=== PATIENT | female | born 1935 | race Caucasian/White ===

== ENCOUNTER 2021-10-24 13:21 | Outpatient (RCR) | payer SELFPAY | END 2022-05-25 10:25 | disposition home or self-care (01) | LOC: MOW 13:21 | PROVIDERS: PCP Family Medicine; Visit Provider Family Medicine | DX: Z76.0 Encounter for issue of repeat prescription (principal) | CPT/HCPCS: S5170 ==

== ENCOUNTER 2021-11-13 10:43 | Emergency (ER) | payer MEDICARE, BC, SELFPAY ==
[2021-11-13 10:51] VITALS: BP 179/78; PULSE 61; RESP 16; TEMP 36.4; O2SAT 97; BMI 36.1
--- NOTE | 2021-11-13 11:40 | ED.GENADULT ---
HPI - General Adult General Chief complaint: Dizziness/Vertigo Stated complaint: Dizziness Time Seen by Provider: 11/13/21 11:07 History of Present Illness HPI narrative: 86-year-old female coming in today complaining of an episode of weakness. She states that she has been feeling fine and got up this morning also feeling fine. She had her breakfast and got ready to go out with her friend. When she went to the door she all of a sudden felt very weak and had to sit on the bench by her front door. She knew that her friend be the urine minutes so she got herself up walked out the door and then sat on the bench outside. When her friend arrived her friend helped her get to the car and they came straight here. Patient states that she feels better now. She is not sure if she is still weak or not if she has not tried to walk. She denies feeling dizzy. She denies feeling lightheaded. She denies the room spinning. She denies nausea or vomiting. No chest pain, shortness of breath or abdominal discomfort. She denies any recent illnesses. She denies any fevers or chills. No recent diarrhea or urinary symptoms such as frequency, urgency or dysuria. She does not have a headache. She denies any blurry vision, double vision or changes in her hearing. She denies any slurred speech or focal neurologic deficit. She denies 1 leg or arm not working when compared to the others. Related Data Previous Rx's Medication Instructions Recorded cephalexin 500 mg tablet 500 mg PO TID 5 Days #15 tab 11/13/21 Allergies Allergy/AdvReac Type Severity Reaction Status Date / Time nitrofurantoin Allergy Unknown Verified 11/13/21 13:40 diphenhydramine AdvReac Unknown Verified 11/13/21 13:39 melatonin AdvReac Unknown Verified 11/13/21 13:40 lactose intolerance AdvReac Unknown Uncoded 11/13/21 13:39 Review of Systems Status of ROS: Reports: 10 or more systems reviewed and unremarkable except as noted in History and below PFSH PFS Social History Smoking Status: Never smoker How often do you have a drink containing alcohol: never AUDIT-C Alcohol total score: 0 Non-prescribed substance use: denies use Exam Narrative: Exam Narrative: Well-nourished well-developed patient in no acute distress. Alert and oriented. Answers questions appropriately. Mood and affect are appropriate. Thoughts are goal oriented and rational. No tangential or magical thinking noted. Patient speaks in full sentences without needing to catch their breath. Speech is not slurred or pressured. HEENT: Normocephalic atraumatic. Pupils are equally round reactive to light. Extraocular muscles are intact. Conjunctivae are moist without any icterus noted. Moist mucous membranes. Posterior pharynx is normal. Neck is soft without any lymphadenopathy or thyromegaly. No masses are appreciated. Face is symmetric. There is no facial droop noted. Cardiovascular: Heart is regular rate and rhythm S1 and S2 are present without any murmurs. Lungs: Clear to auscultation bilaterally no wheezes rhonchi or rales are appreciated. Patient takes deep breaths without any discomfort. Abdomen: Soft and nontender nondistended with normal bowel sounds. No guarding or rebound. No masses or organomegaly appreciated. Extremities: Bilateral lower extremities are without edema. Normal DP and PT pulses. Skin: Well perfused without any obvious rashes. Strength is 5/5 of the upper and lower extremities. Reflexes are 2+ and symmetric at the knees. Cranial nerves 3-12 are normal. [id number] is normal. There is no nystagmus either horizontally or vertically. Patient is able to sit up in bed without difficulty. Patient was able to get out of bed and ambulate to the bathroom unassisted. However after she was the bathroom she said that she felt like she was going to fall over she requested help getting back to the room. Later on she was able to ambulate again unassisted back to the bathroom and back to the bed. Const: Vital Signs, click to edit/add: Vital Signs - 24 hr 11/13/21 10:51 11/13/21 12:28 11/13/21 13:03 Temperature 97.5 F L Pulse Rate [Pulse Oximeter] 61 62 Pulse Rate [orthos tatic lying] 64 Pulse Rate [orthos tatic sitting] 62 Pulse Rate [orthos tatic standing] 62 Respiratory Rate 16 14 Blood Pressure [Le ft Forearm] 179/78 H 194/93 H Blood Pressure [or thostatic lying] 193/87 H Blood Pressure [or thostatic sitting] 195/82 H Blood Pressure [or thostatic standing ] 181/109 H Pulse Oximetry 97 96 11/13/21 14:30 11/13/21 15:34 11/13/21 15:35 Temperature 97.5 F L Pulse Rate [Pulse Oximeter] 89 84 Pulse Rate [orthos tatic lying] Pulse Rate [orthos tatic sitting] Pulse Rate [orthos tatic standing] Respiratory Rate 12 12 14 Blood Pressure [Le ft Forearm] 188/89 H 165/100 H Blood Pressure [or thostatic lying] Blood Pressure [or thostatic sitting] Blood Pressure [or thostatic standing ] Pulse Oximetry 97 98 Course Course Hospital Course: Labs appear unremarkable however urinalysis does shows signs of infection. We were able to do a head CT which was unremarkable and given the patient's loss of balance that has now occurred twice once at home and once in the ED I did recommend a CTA study to rule out stroke. She is not able to get an MRI here if she does have a pacemaker. We attempted multiple times to get an IV in and unfortunately were unsuccessful even with the help from the anesthesia team. I discussed patient's options with her at this point which would include transfer to another facility in order to have 1 of these test done in order to assess whether not her symptoms are stroke related. Patient states that she is not interested in doing this test and she was requesting to go home. I did speak to the patient's daughter, Daniela, who stated that the patient often has episodes like this. For example she states that they went to the store the other day and patient had to put her head down on the checkout counter because she was very dizzy and felt like she could not stand anymore. Read back also states that the patient hyperventilates frequently which causes her to feel like she is going to pass out. Daniela states that the patient often complains to her that she is feeling weak. Vital Signs Vital signs: Initial Vital Signs Temperature 97.5 F L 11/13/21 10:51 Temperature Source Temporal Artery Scan 11/13/21 10:51 Pulse Rate 61 11/13/21 10:51 Pulse Rhythm 11/13/21 10:51 Respiratory Rate 16 11/13/21 10:51 Blood Pressure 179/78 H 11/13/21 10:51 Blood Pressure Mean 111 11/13/21 10:51 Pulse Oximetry 97 11/13/21 10:51 Oxygen Delivery Method 11/13/21 10:51 Vital Signs Temperature 97.5 F L 11/13/21 10:51 Pulse Rate 61 11/13/21 10:51 Respiratory Rate 16 11/13/21 10:51 Blood Pressure 179/78 H 11/13/21 10:51 Pulse Oximetry 97 11/13/21 10:51 Temperature 97.5 F L 11/13/21 15:34 Pulse Rate 84 11/13/21 15:35 Respiratory Rate 14 11/13/21 15:35 Blood Pressure 165/100 H 11/13/21 15:35 Pulse Oximetry 98 11/13/21 15:35 Medical Decision Making MDM Narrative Medical decision making narrative: 86-year-old female with an episode of feeling like she lost her balance and weakness. We discussed the possibility of a stroke causing her symptoms. We discussed the possibility of feeling hot overheated or dehydrated. We discussed old age and positional changes causing her symptoms. We discussed putting her on a daily aspirin which the patient states that she cannot take. She is currently on daily Xarelto. Again I expressed my concern about not being able to do further testing and patient said that she understands this but is hungry and would rather go home at this point. I requested that she follow up with her primary care provider this coming week to see how she is feeling. In the meantime there certainly is a possibility of a UTI given her abnormal UA results therefore will put her on Keflex 3 times a day for 5 days. Lab Data Labs: Lab Results 11/13/21 11/13/21 11/13/21 Range/Units 11:16 11:58 11:58 WBC 6.69 (4.50-11.00) K/uL RBC 4.42 (4.00-5.20) m/uL Hgb 14.1 (12.0-16.0) gm/dL Hct 42.7 (33.0-51.0) % MCV 97 (80-100) fL MCH 32 (26-34) pg MCHC 33 (32-36) gm/dL RDW Coeff of Jose Maria 12.5 (11.5-15.5) % Plt Count 264 (140-440) K/uL Neut % (Auto) 63.6 (42.0-72.0) % Lymph % (Auto) 24.2 (20-44) % [place] % (Auto) 9.0 (0.0-11.0) % Eos % (Auto) 2.2 (0.0-7.0) % Baso % (Auto) 0.9 (0.0-3.0) % Neut # (Auto) 4.25 (1.7-7.0) K/uL Lymph # (Auto) 1.62 (0.90-2.90) K/uL [place] # (Auto) 0.60 (0.00-0.90) K/UL Eos # (Auto) 0.15 (0.00-0.50) K/uL Baso # (Auto) 0.06 (0.00-0.30) K/uL Abs Immat Gran (auto) 0.01 (0.00-0.30) K/uL Sodium 139 (135-149) mmol/L Potassium 3.8 (3.6-5.1) mmol/L Chloride 106 (96-114) mmol/L Carbon Dioxide 24 (20-32) mmol/L BUN 23 (7-30) mg/dL Creatinine 0.6 (0.5-1.5) mg/dL Estimated Creat Clear 33.41 Estimated GFR 87 ml/min Glucose 99 (60-115) mg/dL Lactate (0.5-1.9) mmol/L Calcium 9.4 (8.4-10.6) mg/dL Total Bilirubin 0.8 (0.1-1.5) mg/dL Direct Bilirubin 0.3 (0.0-0.5) mg/dL AST 26 (12-35) U/L ALT 18 (4-35) U/L Alkaline Phosphatase 70 (40-150) U/L Total Protein 5.9 L (6.0-8.3) g/dL Albumin 3.7 (3.3-5.0) g/dL Urine Color Yellow (Yellow) Urine Appearance Cloudy A (Clear) Urine pH 7.0 (5.0-8.5) Ur Specific [place] 1.020 (1.000-1.030) Urine Protein Negative (Negative) Urine Glucose (UA) Negative (Negative) Urine Ketones Negative (Negative) Urine Blood 1+ A (Negative) Urine Nitrite Positive A (Negative) Urine Bilirubin Negative (Negative) Urine Urobilinogen 0.2 (0.2-1.0) Ur Leukocyte Esterase Trace A (Negative) Urine RBC 0-2 (0-2) Urine WBC 2-5 (0-5) Ur Squamous Epith Cells Few (None-Few) Amorphous Sediment (None) Urine Bacteria Many A (None) Urine Mucus (None) POC Troponin I (0.01-0.04) ng/ml 11/13/21 11/13/21 Range/Units 11:58 11:58 WBC (4.50-11.00) K/uL RBC (4.00-5.20) m/uL Hgb (12.0-16.0) gm/dL Hct (33.0-51.0) % MCV (80-100) fL MCH (26-34) pg MCHC (32-36) gm/dL RDW Coeff of Jose Maria (11.5-15.5) % Plt Count (140-440) K/uL Neut % (Auto) (42.0-72.0) % Lymph % (Auto) (20-44) % [place] % (Auto) (0.0-11.0) % Eos % (Auto) (0.0-7.0) % Baso % (Auto) (0.0-3.0) % Neut # (Auto) (1.7-7.0) K/uL Lymph # (Auto) (0.90-2.90) K/uL [place] # (Auto) (0.00-0.90) K/UL Eos # (Auto) (0.00-0.50) K/uL Baso # (Auto) (0.00-0.30) K/uL Abs Immat Gran (auto) (0.00-0.30) K/uL Sodium (135-149) mmol/L Potassium (3.6-5.1) mmol/L Chloride (96-114) mmol/L Carbon Dioxide (20-32) mmol/L BUN (7-30) mg/dL Creatinine (0.5-1.5) mg/dL Estimated Creat Clear Estimated GFR ml/min Glucose (60-115) mg/dL Lactate 1.5 (0.5-1.9) mmol/L Calcium (8.4-10.6) mg/dL Total Bilirubin (0.1-1.5) mg/dL Direct Bilirubin (0.0-0.5) mg/dL AST (12-35) U/L ALT (4-35) U/L Alkaline Phosphatase (40-150) U/L Total Protein (6.0-8.3) g/dL Albumin (3.3-5.0) g/dL Urine Color (Yellow) Urine Appearance (Clear) Urine pH (5.0-8.5) Ur Specific [place] (1.000-1.030) Urine Protein (Negative) Urine Glucose (UA) (Negative) Urine Ketones (Negative) Urine Blood (Negative) Urine Nitrite (Negative) Urine Bilirubin (Negative) Urine Urobilinogen (0.2-1.0) Ur Leukocyte Esterase (Negative) Urine RBC (0-2) Urine WBC (0-5) Ur Squamous Epith Cells (None-Few) Amorphous Sediment (None) Urine Bacteria (None) Urine Mucus (None) POC Troponin I 0.00 L (0.01-0.04) ng/ml Imaging Data CT scan - head: Attestation: I have reviewed the pertinent imaging results. Radiologist's impression: FINDINGS: CSF spaces: Within normal limits for age. Brain parenchyma: The patterson-white differentiation is normal. No sign of mass, hemorrhage, or midline shift. Periventricular white matter changes consistent chronic microvascular disease. Skull base and calvarium: The visualized paranasal sinuses and mastoid air cells demonstrate no acute or significant findings. The visualized orbits are grossly unremarkable. No skull fractures. IMPRESSION: No acute intracranial abnormalities. Periventricular white matter changes consistent chronic microvascular disease ECG Data Attestation: I personally reviewed and interpreted this ECG as follows: (Atrial paced rhythm with prolonged AV conduction) Discharge Plan Discharge Clinical Impression: Weakness, UTI (urinary tract infection) Patient Disposition: Home, Self-Care Condition: Improved Additional Instructions: Follow-up with your primary care doctor if you are not feeling better this coming week. Make sure to eat nutritious meals and stay well hydrated. Get plenty of rest. Stay out of the heat. Discuss with your doctor regarding starting a daily aspirin. Prescriptions: New cephalexin 500 mg tablet 500 mg PO TID 5 Days Qty: 15 0RF Follow Up/Referrals: Leila Gonzalez DO [Primary Care Provider] - Stand Alone Forms: [facility] Info Instructions
[2021-11-13 12:08] LABS: Lactate* 1.5 mmol/L (0.5-1.9)
[2021-11-13 12:09] LABS: Potassium* 3.8 mmol/L (3.6-5.1); Sodium* 139 mmol/L (135-149)
[2021-11-13 12:10] LABS: Carbon Dioxide* 24 mmol/L (20-32); Chloride* 106 mmol/L (96-114); Glucose* 99 mg/dL (60-115)
[2021-11-13 12:22] LABS: Basophils Absolute Auto 0.06 K/uL (0.00-0.30); Basophils Percent Auto 0.9 % (0.0-3.0); Eosinophils Absolute Auto 0.15 K/uL (0.00-0.50); Eosinophils Percent Auto 2.2 % (0.0-7.0); Hematocrit 42.7 % (33.0-51.0); Hemoglobin* 14.1 gm/dL (12.0-16.0); Immature Granulocytes Abs Auto 0.01 K/uL (0.00-0.30); Lymphocytes Absolute Auto 1.62 K/uL (0.90-2.90); Lymphocytes Percent Auto 24.2 % (20-44); Mean Corpuscular HGB Conc 33 gm/dL (32-36); Mean Corpuscular Hemoglobin 32 pg (26-34); Mean Corpuscular Volume 97 fL (80-100); Neutrophils Absolute Auto 4.25 K/uL (1.7-7.0); Neutrophils Percent Auto 63.6 % (42.0-72.0); Platelet Count* 264 K/uL (140-440); RDW Coefficient of Variation % 12.5 % (11.5-15.5); Red Blood Count 4.42 m/uL (4.00-5.20); White Blood Count* 6.69 K/uL (4.50-11.00)
[2021-11-13 12:28] VITALS: BP 181/109; BP 193/87; BP 195/82; PULSE 62; PULSE 64
--- NOTE | 2021-11-13 12:45 | CRLHL7_ITS ---
For Patients: As a result of the Century Cures Act, medical imaging exams and procedure reports are released immediately into your electronic medical record. You may view this report before your referring provider. If you have questions, please contact your health care provider. INDICATION: Ataxia TECHNIQUE: CT head without contrast. COMPARISON: None FINDINGS: CSF spaces: Within normal limits for age. Brain parenchyma: The patterson-white differentiation is normal. No sign of mass, hemorrhage, or midline shift. Periventricular white matter changes consistent chronic microvascular disease. Skull base and calvarium: The visualized paranasal sinuses and mastoid air cells demonstrate no acute or significant findings. The visualized orbits are grossly unremarkable. No skull fractures. IMPRESSION: No acute intracranial abnormalities. Periventricular white matter changes consistent chronic microvascular disease Dictated by Haile Knowles MD @ 11/13/2021 2:14:12 PM Please note that all CT scans at this facility use dose modulation, iterative reconstruction, and/or weight-based dosing when appropriate to reduce radiation dose to as low as reasonably achievable. Dictated by: Haile Knowles MD @ 11/13/2021 14:14:18 (Electronically Signed)
[2021-11-13 12:47] LABS: Slide Review Reflex No
[2021-11-13 13:03] VITALS: BP 194/93; PULSE 62; RESP 14; O2SAT 96
[2021-11-13 13:15] LABS: Albumin* 3.7 g/dL (3.3-5.0)
[2021-11-13 13:18] LABS: Aspartate Amino Transferase* 26 U/L (12-35); Bilirubin Direct* 0.3 mg/dL (0.0-0.5); Bilirubin Total* 0.8 mg/dL (0.1-1.5); Blood Urea Nitrogen* 23 mg/dL (7-30); Creatinine* 0.6 mg/dL (0.5-1.5); Est. Creatinine Clearance* 33.41; Estimated Glomerular Filt Rate 87 ml/min; Total Protein* 5.9 g/dL (6.0-8.3)
[2021-11-13 13:19] LABS: Alanine Aminotransferase* 18 U/L (4-35); Alkaline Phosphatase* 70 U/L (40-150); Calcium* 9.4 mg/dL (8.4-10.6)
[2021-11-13 13:23] LABS: Appearance Urine Cloudy (Clear); Bilirubin Urine Negative (Negative); Blood Urine 1+ (Negative); Color Urine Yellow (Yellow); Glucose Urine Negative (Negative); Ketones Urine Negative (Negative); Leukocyte Esterase Urine Trace (Negative); Nitrite Urine Positive (Negative); Protein Urine Negative (Negative); RBC Urine 0-2 (0-2); Urobilinogen Urine 0.2 (0.2-1.0)
[2021-11-13 13:24] LABS: Bacteria Urine Many; Squamous Epithelial Cell Urine Few (None-Few)
--- NOTE | 2021-11-13 14:15 | ED.NURSE ---
Anesthesia in room for IV start for CTA.
[2021-11-13 14:30] VITALS: BP 188/89; PULSE 89; RESP 12; O2SAT 97
[2021-11-13 15:34] VITALS: RESP 12; TEMP 36.4
[2021-11-13 15:35] VITALS: BP 165/100; PULSE 84; RESP 14; O2SAT 98
--- NOTE | 2021-11-13 17:49 | ED.NURSE ---
Per MD, Pt to start Keflex 500mg PO TID x5days for UTI tx. Pt notified and would like it called in to [facility]. Rx called in to pharmacy staff.
== END 2021-11-13 15:47 | disposition home or self-care (01) ==
PROVIDERS: Emergency Provider Family Medicine; PCP Family Medicine
DX: R53.1 Weakness (principal); N39.0 Urinary tract infection, site not specified
CPT/HCPCS: 36415; 70450; 80048; 80076; 81001; 82565; 83605; 84484; 85025; 87086; 87186; 93005; 99285

== ENCOUNTER 2022-03-13 17:32 | Inpatient (IN) | payer MEDICARE, BC, SELFPAY ==
[2022-03-13] VITALS (7 sets, daily range): BP systolic 153–212; BP diastolic 70–128; PULSE 62–70; RESP 15–36; TEMP 37.3; O2SAT 91–97; BMI 36.1
[2022-03-13] MEDS: IPRAT-ALBUT 0.5-2.5 MG/3 ML NEB 1 NEB IH (17:47)
--- NOTE | 2022-03-13 18:00 | ED.SOB ---
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 Pt tested negative at home for COVID 19. Pt symptoms have progressed and pt was seen at the [facility] earlier today. Pt sent over as she appears to be developing respiratory distress. No chest pain noted. Pt saturation above 90% upon arrival on room air. Cough is largely nonproductive. Pt states that prior to her current illness she has been feeling overall fairly well. Pt has been afebrile. Related Data Home Medications Medication Instructions Recorded Confirmed buspirone 10 mg tablet 10 mg PO TID 03/13/22 03/13/22 donepezil 10 mg tablet 10 mg PO DAILY 03/13/22 03/13/22 flecainide 150 mg tablet 150 mg PO Q12H 03/13/22 03/13/22 furosemide 20 mg tablet 20 mg PO DAILY 03/13/22 03/13/22 lorazepam 0.5 mg tablet 0.5 mg PO DAILY PRN 03/13/22 03/13/22 rivaroxaban 20 mg tablet (Xarelto) 20 mg PO Q24H 03/13/22 03/13/22 Previous Rx's Medication Instructions Recorded cephalexin 500 mg tablet 500 mg PO TID 5 days #15 tabs 11/13/21 Allergies Allergy/AdvReac Type Severity Reaction Status Date / Time lactose Allergy Intermediate GI upset Verified 03/13/22 18:09 nitrofurantoin Allergy Unknown Verified 03/13/22 18:09 diphenhydramine AdvReac Unknown Verified 03/13/22 18:09 melatonin AdvReac Unknown Verified 03/13/22 18:09 [facility] Medical History (Updated 03/13/22 @ 21:31 by Amando Bermudez MD) Anxiety Atrial fibrillation CHF (congestive heart failure) Cognitive impairment Diverticulosis GERD (gastroesophageal reflux disease) Hypertension Pacemaker Sick sinus syndrome Surgical History (Updated 03/13/22 @ 18:20 by Amando Bermudez MD) H/O bilateral oophorectomy History of appendectomy Social History Smoking Status: Never smoker How often do you have a drink containing alcohol: never AUDIT-C Alcohol total score: 0 Non-prescribed substance use: denies use Exam Narrative: Exam Narrative: EXAM GENERAL: Patient appears frail and tachypneic EYES: No scleral icterus. THYROID: no thyroid nodules or thyromegaly. LYMPH: No supraclavicular or cervical lymphadenopathy. SKIN: Visible skin seen during exam normal or with benign process only. EXT: No dependent lower extremity pedal edema. HEART: Regular rate with distant heart tones. LUNGS: Expiratory wheezes with rhonchi bilaterally ABD: Soft, non tender, non distended. PSYCH: Good eye contact, speech is not pressured. Const: Vital Signs, click to edit/add: Vital Signs - 24 hr 03/13/22 17:36 Temperature 99.2 F Pulse Rate [Right Pulse Oximeter] 70 Respiratory Rate 36 H Blood Pressure [Ri ght Upper Arm] 204/84 H Pulse Oximetry 93 Oxygen Delivery Me thod Room Air Course Course Hospital Course: Pt seen and examined. Reevaluation(s) Reevaluation #1: RSV positive. Rest of workup shows an elevated BNP. CT of chest shows previous pnemonectomy with residual. Pt treated wtih duoneb and sats still borderline and pt working hard to breath. Will admit for IV steroids and pulmonary care. Vital Signs Vital signs: Initial Vital Signs Temperature 99.2 F 03/13/22 17:36 Temperature Source Temporal Artery Scan 03/13/22 17:36 Pulse Rate 70 03/13/22 17:36 Respiratory Rate 36 H 03/13/22 17:36 Blood Pressure 204/84 H 03/13/22 17:36 Blood Pressure Mean 124 03/13/22 17:36 Blood Pressure Position Sitting 03/13/22 17:36 Pulse Oximetry 93 03/13/22 17:36 Oxygen Delivery Method 03/13/22 17:36 Vital Signs Temperature 99.2 F 03/13/22 17:36 Pulse Rate 70 03/13/22 17:36 Respiratory Rate 36 H 03/13/22 17:36 Blood Pressure 204/84 H 03/13/22 17:36 Pulse Oximetry 93 03/13/22 17:36 Oxygen Delivery Method 03/13/22 17:36 Temperature 99.2 F 03/13/22 17:36 Pulse Rate 70 03/13/22 17:36 Respiratory Rate 36 H 03/13/22 17:36 Blood Pressure 204/84 H 03/13/22 17:36 Pulse Oximetry 93 03/13/22 17:36 Oxygen Delivery Method 03/13/22 17:36 MDM - SOB/Dyspnea MDM Narrative Medical decision making narrative: Pt brought in in respiratory distress. Treated with duoneb. Sats borderline on room air. Pt tests positive for RSV. BNP elevated. Pts workup otherwise unremarkable. Pt continuing to work hard at breathing. Will dose with Solumedrol 40 mg IV and admit. Differential Diagnosis Differential diagnosis: Likely acute exacerbation of chronic obstructive airways disease, congestive heart failure, community acquired pneumonia, asthma with exacerbation and pulmonary embolism Lab Data Labs: Lab Results 03/13/22 03/13/22 03/13/22 Range/Units 17:48 17:50 17:50 WBC 8.65 (4.50-11.00) K/uL RBC 4.71 (4.00-5.20) m/uL Hgb 15.1 (12.0-16.0) gm/dL Hct 46.4 (33.0-51.0) % MCV 99 (80-100) fL MCH 32 (26-34) pg MCHC 33 (32-36) gm/dL RDW Coeff of Jose Maria 12.6 (11.5-15.5) % Plt Count 233 (140-440) K/uL Neut % (Auto) 67.0 (42.0-72.0) % Lymph % (Auto) 20.5 (20-44) % [place] % (Auto) 9.8 (0.0-11.0) % Eos % (Auto) 1.8 (0.0-7.0) % Baso % (Auto) 0.8 (0.0-3.0) % Neut # (Auto) 5.79 (1.7-7.0) K/uL Lymph # (Auto) 1.77 (0.90-2.90) K/uL [place] # (Auto) 0.80 (0.00-0.90) K/UL Eos # (Auto) 0.16 (0.00-0.50) K/uL Baso # (Auto) 0.07 (0.00-0.30) K/uL Abs Immat Gran (auto) 0.01 (0.00-0.30) K/uL Imm/Tot Granulo (auto) 0.1 % ABG pH (7.35-7.45) ABG pCO2 (35-45) mmHG ABG pO2 (80-105) mmHG ABG HCO3 (21-28) mmol/L ABG Total CO2 (21-30) mmol/l ABG O2 Saturation (92-100) % ABG Base Excess (-3.0-3.0) mmol/L Sodium 136 (135-149) mmol/L Potassium 4.3 (3.6-5.1) mmol/L Chloride 101 (96-114) mmol/L Carbon Dioxide 30 (20-32) mmol/L BUN 23 (7-30) mg/dL Creatinine 0.6 (0.5-1.5) mg/dL Estimated Creat Clear 33.41 Estimated GFR 87 ml/min Glucose 131 H (60-115) mg/dL Lactate (0.5-1.9) mmol/L Calcium 9.7 (8.4-10.6) mg/dL Total Bilirubin 0.8 (0.1-1.5) mg/dL AST 38 H (12-35) U/L ALT 20 (4-35) U/L Alkaline Phosphatase 67 (40-150) U/L Troponin I (0.01-0.04) ng/mL NT-Pro-B Natriuret Pep (0-450) PG/mL Total Protein 7.1 (6.0-8.3) g/dL Albumin 4.4 (3.3-5.0) g/dL SARS-CoV-2 (PCR) Negative SARS-CoV-2 (Negative) Influenza Type A (PCR) Negative PCR FLU A (Negative) Influenza Type B (PCR) Negative PCR FLU B (Negative) RSV (PCR) POSITIVE PCR RSV A (Negative) 03/13/22 03/13/22 03/13/22 Range/Units 17:50 17:50 18:15 WBC (4.50-11.00) K/uL RBC (4.00-5.20) m/uL Hgb (12.0-16.0) gm/dL Hct (33.0-51.0) % MCV (80-100) fL MCH (26-34) pg MCHC (32-36) gm/dL RDW Coeff of Jose Maria (11.5-15.5) % Plt Count (140-440) K/uL Neut % (Auto) (42.0-72.0) % Lymph % (Auto) (20-44) % [place] % (Auto) (0.0-11.0) % Eos % (Auto) (0.0-7.0) % Baso % (Auto) (0.0-3.0) % Neut # (Auto) (1.7-7.0) K/uL Lymph # (Auto) (0.90-2.90) K/uL [place] # (Auto) (0.00-0.90) K/UL Eos # (Auto) (0.00-0.50) K/uL Baso # (Auto) (0.00-0.30) K/uL Abs Immat Gran (auto) (0.00-0.30) K/uL Imm/Tot Granulo (auto) % ABG pH 7.41 (7.35-7.45) ABG pCO2 43 (35-45) mmHG ABG pO2 71.5 L (80-105) mmHG ABG HCO3 28 (21-28) mmol/L ABG Total CO2 24 (21-30) mmol/l ABG O2 Saturation 96 (92-100) % ABG Base Excess 2.5 (-3.0-3.0) mmol/L Sodium (135-149) mmol/L Potassium (3.6-5.1) mmol/L Chloride (96-114) mmol/L Carbon Dioxide (20-32) mmol/L BUN (7-30) mg/dL Creatinine (0.5-1.5) mg/dL Estimated Creat Clear Estimated GFR ml/min Glucose (60-115) mg/dL Lactate 1.5 (0.5-1.9) mmol/L Calcium (8.4-10.6) mg/dL Total Bilirubin (0.1-1.5) mg/dL AST (12-35) U/L ALT (4-35) U/L Alkaline Phosphatase (40-150) U/L Troponin I 0.01 (0.01-0.04) ng/mL NT-Pro-B Natriuret Pep (0-450) PG/mL Total Protein (6.0-8.3) g/dL Albumin (3.3-5.0) g/dL SARS-CoV-2 (PCR) (Negative) Influenza Type A (PCR) (Negative) Influenza Type B (PCR) (Negative) RSV (PCR) (Negative) 03/13/22 Range/Units 18:52 WBC (4.50-11.00) K/uL RBC (4.00-5.20) m/uL Hgb (12.0-16.0) gm/dL Hct (33.0-51.0) % MCV (80-100) fL MCH (26-34) pg MCHC (32-36) gm/dL RDW Coeff of Jose Maria (11.5-15.5) % Plt Count (140-440) K/uL Neut % (Auto) (42.0-72.0) % Lymph % (Auto) (20-44) % [place] % (Auto) (0.0-11.0) % Eos % (Auto) (0.0-7.0) % Baso % (Auto) (0.0-3.0) % Neut # (Auto) (1.7-7.0) K/uL Lymph # (Auto) (0.90-2.90) K/uL [place] # (Auto) (0.00-0.90) K/UL Eos # (Auto) (0.00-0.50) K/uL Baso # (Auto) (0.00-0.30) K/uL Abs Immat Gran (auto) (0.00-0.30) K/uL Imm/Tot Granulo (auto) % ABG pH (7.35-7.45) ABG pCO2 (35-45) mmHG ABG pO2 (80-105) mmHG ABG HCO3 (21-28) mmol/L ABG Total CO2 (21-30) mmol/l ABG O2 Saturation (92-100) % ABG Base Excess (-3.0-3.0) mmol/L Sodium (135-149) mmol/L Potassium (3.6-5.1) mmol/L Chloride (96-114) mmol/L Carbon Dioxide (20-32) mmol/L BUN (7-30) mg/dL Creatinine (0.5-1.5) mg/dL Estimated Creat Clear Estimated GFR ml/min Glucose (60-115) mg/dL Lactate (0.5-1.9) mmol/L Calcium (8.4-10.6) mg/dL Total Bilirubin (0.1-1.5) mg/dL AST (12-35) U/L ALT (4-35) U/L Alkaline Phosphatase (40-150) U/L Troponin I (0.01-0.04) ng/mL NT-Pro-B Natriuret Pep 1010 H (0-450) PG/mL Total Protein (6.0-8.3) g/dL Albumin (3.3-5.0) g/dL SARS-CoV-2 (PCR) (Negative) Influenza Type A (PCR) (Negative) Influenza Type B (PCR) (Negative) RSV (PCR) (Negative) Discharge Plan Discharge Clinical Impression: Breath shortness Patient Disposition: Admitted As Inpatient Condition: Stable Activity Level: No Restrictions Discharge Diet: Regular Prescriptions: No Action buspirone 10 mg tablet 10 mg PO TID flecainide 150 mg tablet 150 mg PO Q12H Label Comments: TAKE HALF TABLET BY MOUTH EVERY TWELVE HOURS furosemide 20 mg tablet 20 mg PO DAILY Label Comments: TAKE ONE TABLET BY MOUTH ONE TIME DAILY lorazepam 0.5 mg tablet 0.5 mg PO DAILY PRN Label Comments: TAKE ONE TABLET (0.5MG) BY MOUTH ONE TIME DAILY AT BEDTIME NEEDED FOR SLEEP. Xarelto 20 mg tablet 20 mg PO Q24H Label Comments: TAKE ONE TABLET BY MOUTH ONE TIME DAILY IN THE EVENING WITH FOOD donepezil 10 mg tablet 10 mg PO DAILY Label Comments: TAKE ONE TABLET BY MOUTH ONE TIME DAILY AT BEDTIME cephalexin 500 mg tablet 500 mg PO TID 5 Days Qty: 15 0RF Follow Up/Referrals: Leila Gonzalez DO [Primary Care Provider] -
[2022-03-13 18:09] LABS: Lactate* 1.5 mmol/L (0.5-1.9)
[2022-03-13 18:10] LABS: Basophils Absolute Auto 0.07 K/uL (0.00-0.30); Basophils Percent Auto 0.8 % (0.0-3.0); Eosinophils Absolute Auto 0.16 K/uL (0.00-0.50); Eosinophils Percent Auto 1.8 % (0.0-7.0); Hematocrit 46.4 % (33.0-51.0); Hemoglobin* 15.1 gm/dL (12.0-16.0); Immature Granulocytes Abs Auto 0.01 K/uL (0.00-0.30); Immature Granulocytes Pct Auto 0.1 %; Lymphocytes Absolute Auto 1.77 K/uL (0.90-2.90); Lymphocytes Percent Auto 20.5 % (20-44); Mean Corpuscular HGB Conc 33 gm/dL (32-36); Mean Corpuscular Hemoglobin 32 pg (26-34); Mean Corpuscular Volume 99 fL (80-100); Monocytes Percent Auto 9.8 % (0.0-11.0); Neutrophils Absolute Auto 5.79 K/uL (1.7-7.0); Platelet Count* 233 K/uL (140-440); RDW Coefficient of Variation % 12.6 % (11.5-15.5); Red Blood Count 4.71 m/uL (4.00-5.20); White Blood Count* 8.65 K/uL (4.50-11.00)
[2022-03-13 18:11] LABS: Slide Review Reflex No
--- NOTE | 2022-03-13 18:15 | ED.NURSE ---
1755--patient is very wheezy and sob given a duo neb for this and pulse ox 91-3% on room air. coughing, informed the MD of needing to see patient quickly.
[2022-03-13 18:26] LABS: Albumin* 4.4 g/dL (3.3-5.0); Chloride* 101 mmol/L (96-114); Potassium* 4.3 mmol/L (3.6-5.1); Sodium* 136 mmol/L (135-149)
[2022-03-13 18:28] LABS: Creatinine* 0.6 mg/dL (0.5-1.5); Est. Creatinine Clearance* 33.41; Estimated Glomerular Filt Rate 87 ml/min
[2022-03-13 18:29] LABS: Alanine Aminotransferase* 20 U/L (4-35); Alkaline Phosphatase* 67 U/L (40-150); Aspartate Amino Transferase* 38 U/L (12-35); Bilirubin Total* 0.8 mg/dL (0.1-1.5); Blood Urea Nitrogen* 23 mg/dL (7-30); Carbon Dioxide* 30 mmol/L (20-32); Glucose* 131 mg/dL (60-115); Total Protein* 7.1 g/dL (6.0-8.3)
[2022-03-13 18:30] LABS: Calcium* 9.7 mg/dL (8.4-10.6)
[2022-03-13 18:36] LABS: ABG PCO2 43 mmHG (35-45); HCO3 ABG 28 mmol/L (21-28); PO2 ABG 71.5 mmHG (80-105); TCO2 ABG 24 mmol/l (21-30); pH ABG 7.41 (7.35-7.45)
[2022-03-13 18:37] LABS: Base Excess ABG 2.5 mmol/L (-3.0-3.0); Oxygen Saturation ABG 96 % (92-100)
[2022-03-13 18:41] LABS: Troponin I* 0.01 ng/mL (0.01-0.04)
--- NOTE | 2022-03-13 18:52 | CRLHL7_ITS ---
For Patients: As a result of the Century Cures Act, medical imaging exams and procedure reports are released immediately into your electronic medical record. You may view this report before your referring provider. If you have questions, please contact your health care provider. INDICATION: Shortness of breath. TECHNIQUE: CT chest PE was acquired with 95 cc Isovue 370 IV contrast. COMPARISON: January 30, 2021. FINDINGS: Heart and vasculature: Contrast opacification of the pulmonary arterial tree is adequate. No sign of pulmonary embolism. Heart size is normal. Thoracic aorta and pulmonary artery are normal in caliber. Lungs and pleura: There are numerous bilateral pulmonary nodules, left lung greater than right. All together there are at least 30 nodules with the largest measuring up to 1.5 cm. No lobar infiltrates. No pleural effusions, pleural thickening, or pneumothorax. Lymph nodes/mediastinum: No mediastinal, hilar, or axillary adenopathy. Chest wall: No masses. Upper abdomen: No acute or significant findings. Bones: Unremarkable for age. IMPRESSION: 1. No pulmonary embolism or other acute abnormality. 2. Numerous scattered bilateral pulmonary nodules are worse in the left lung. These have significantly increased in size in number compared to the prior exam from 1 year ago consistent with worsening of metastatic disease. Please note that all CT scans at this facility use dose modulation, iterative reconstruction, and/or weight-based dosing when appropriate to reduce radiation dose to as low as reasonably achievable. Dictated by Jose Marina MD @ 03/13/2022 9:13:36 PM (Electronically Signed) ----- ADDENDUM ----- FINDINGS: Comparison CT chest and PET scan from August 16, 2021 are now available. The numerous pulmonary nodules on the current exam have universally increased in size compared to the prior exams from July 2021. The largest nodule appears in the left lung on series 5, image 76 measuring 1.4 x 1.1 cm. Majority of the nodules measure approximately 1 cm, these previously measured under 1 cm. Findings are consistent with worsening of metastatic disease. No other changes to the initial report Dictated by Jose Marina MD @ Apr 14 2022 8:37AM Signed by:?Jose Marina MD @03/13/2022 9:13:36 PM (Electronic Signature)
[2022-03-13 18:57] LABS: PCR FLU A Negative PCR FLU A (Negative); PCR FLU B Negative PCR FLU B (Negative); PCR RSV POSITIVE PCR RSV (Negative)
[2022-03-13 19:00] LABS: SARS PCR* Negative SARS-CoV-2 (Negative)
[2022-03-13 19:05] LABS: NT Pro B Type NatriureticPept* 1010 PG/mL (0-450)
[2022-03-13 21:53] LABS: Lactate* 1.1 mmol/L (0.5-1.9)
--- NOTE | 2022-03-13 22:07 | ED.NURSE ---
Report given to KERRIE Hall.
[2022-03-13] MEDS: METHYLPREDNISOLONE SOD SUCC 40 MG/ML IVP (22:15)
--- NOTE | 2022-03-13 22:22 | W.PC.EDHO ---
Primary Language: TURKMEN; HARD OF HEARING Preferred Language: Orientation Status: [] Alert & Oriented [] Slight Confusion [] Known Dx Dementia Transfers By: [] Assist of 1 [] Assist of 2 [] Lift Active Medications Discontinued Medications Generic Name Dose Route Start Last Admin Trade Name Ash PRN Reason Stop Dose Admin Albuterol/Ipratropium 1 neb 03/13/22 17:49 03/13/22 17:47 Iprat-Albut 0.5-2.5 Mg/3 Ml Neb IH 03/13/22 17:50 1 neb ONCE ONE Administration Methylprednisolone Sodium Succinate 40 mg 03/13/22 21:32 03/13/22 22:15 Methylprednisolone Sod Succ 40 Mg/Ml IVP 03/13/22 21:33 40 mg ONCE ONE Administration Description of Symptoms ED Triage Present Problem patient is sob, wheezing, congested coughing up Description yellowish phlegm. was at the clinic today and given a duo neb there. walked patient around and pulse ox dipped down to 88% on room air but did recover into the low 90's. hx of Lung CA and partial right lung removed 3 yrs ago. CXR was done at the clinic to rule out pnx negative but did see new nodules that were not there before. ED Triage Date of Onset of 03/13/22 Symptoms Female History Patient No IV Insertion/Site Date of IV Line Insertion [ 03/13/22 Right Antecubital] Oxygen Administration Pulse Oximetry 93 Oxygen Delivery Method Room Air Cardiac Monitoring EKG Method 12 Lead
--- NOTE | 2022-03-13 22:29 | ED.NURSE ---
Hospitalist continues at bedside.
--- NOTE | 2022-03-13 23:47 | PM.IMHP1 ---
Hospitalist- H&P: HPI History of Present Illness Date Seen: 03/13/22 Chief complaint: Hypoxia Narrative: Madelaine Chao is a 86 year old female admitted through the emergency department with respiratory distress. Patient reports that she became ill with cough and dyspnea in cold symptoms about 5 days ago. She had traveled to [place] and was exposed to other people with respiratory illnesses. She thinks she may have had a low-grade fever as well. She is accompanied by her daughter today who gives most of the history. She does have a history of lung cancer with a right upper lobe lobectomy about 3 years ago. She does not carry a diagnosis of COPD or asthma. She is a nonsmoker but did live with parents who were heavy smokers when she was younger. She does note some hoarseness in her voice. She is able to swallow without difficulty. She is having no chest pain. No abdominal pain. Review of Systems Narrative: Patient's daughter notes that she has chronic dyspnea. Likely a combination of factors including deconditioning, obesity, anxiety according to the daughter. PFSH PFSH Medical History (Updated 03/13/22 @ 23:59 by Favian Encarnacion MD) Anxiety Atrial fibrillation CHF (congestive heart failure) Cognitive impairment COPD exacerbation Diverticulosis GERD (gastroesophageal reflux disease) Hypertension Lung cancer Pacemaker Renal cyst Sick sinus syndrome Surgical History (Updated 03/13/22 @ 23:02 by Favian Encarnacion MD) H/O bilateral oophorectomy History of appendectomy History of colonoscopy History of esophagogastroduodenoscopy (EGD) History of lobectomy of lung History of vein stripping Family History (Updated 03/13/22 @ 23:51 by Favian Encarnacion MD) Father Coronary artery disease High blood pressure Social History (Updated 03/13/22 @ 23:53 by Favian Encarnacion MD) Narrative: Patient lives alone in her own home. Her daughter lives with her somewhat seasonally. The daughter, Daniela, has a cabin near [place] where they spend much of the summer and ache occasionally come to live in [place] during the summer and then mostly during the winter. Madelaine manages mostly on her own. She does get Meals on wheels. She does drive. Daughter Daniela is healthcare power of compliance attorney. Code status is full. 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 She is a nonsmoker but lives with her parents were heavy smokers. She rarely drinks alcohol. Smoking Status: Never smoker How often do you have a drink containing alcohol: never AUDIT-C Alcohol total score: 0 Non-prescribed substance use: denies use Meds Home Medications and Allergies Home Medications Medication Instructions Recorded Confirmed Type buspirone 10 mg tablet 10 mg PO TID 03/13/22 03/13/22 History citalopram 20 mg tablet 30 mg PO DAILY 03/13/22 03/13/22 History donepezil 10 mg tablet 10 mg PO DAILY 03/13/22 03/13/22 History flecainide 150 mg tablet 150 mg PO Q12H 03/13/22 03/13/22 History furosemide 20 mg tablet 20 mg PO DAILY 03/13/22 03/13/22 History lisinopril 2.5 mg tablet 2.5 mg PO DAILY 03/13/22 03/13/22 History lorazepam 0.5 mg tablet 0.5 mg PO DAILY PRN 03/13/22 03/13/22 History rivaroxaban 20 mg tablet (Xarelto) 20 mg PO Q24H 03/13/22 03/13/22 History Allergies Allergy/AdvReac Type Severity Reaction Status Date / Time lactose Allergy Intermediate GI upset Verified 03/13/22 18:09 nitrofurantoin Allergy Unknown Verified 03/13/22 18:09 diphenhydramine AdvReac Unknown Verified 03/13/22 18:09 melatonin AdvReac Unknown Verified 03/13/22 18:09 Exam Const: Vital Signs, click to edit/add: Vital Signs - 24 hr 03/13/22 17:36 03/13/22 18:00 03/13/22 19:00 Temperature 99.2 F Pulse Rate 62 68 Pulse Rate [Right Pulse Oximeter] 70 Respiratory Rate 36 H 21 20 Blood Pressure 181/128 H 153/83 H Blood Pressure [Ri ght Upper Arm] 204/84 H Pulse Oximetry 93 97 95 Oxygen Delivery Me thod Room Air 03/13/22 20:00 03/13/22 21:00 03/13/22 22:00 Temperature Pulse Rate 67 65 63 Pulse Rate [Right Pulse Oximeter] Respiratory Rate 15 19 20 Blood Pressure 193/85 H 212/80 H 209/70 H Blood Pressure [Ri ght Upper Arm] Pulse Oximetry 94 93 93 Oxygen Delivery [facility] Hospitalist - H&P: Result Labs Labs: Short CBC 03/13/22 Range/Units 17:50 WBC 8.65 (4.50-11.00) K/uL Hgb 15.1 (12.0-16.0) gm/dL Hct 46.4 (33.0-51.0) % Plt Count 233 (140-440) K/uL BMP 03/13/22 17:50 Sodium 136 Potassium 4.3 Chloride 101 Carbon Dioxide 30 BUN 23 Creatinine 0.6 Glucose 131 H Calcium 9.7 Cardiac Enzymes 03/13/22 Range/Units 17:50 Troponin I 0.01 (0.01-0.04) ng/mL Liver Function 03/13/22 Range/Units 17:50 Total Bilirubin 0.8 (0.1-1.5) mg/dL AST 38 H (12-35) U/L ALT 20 (4-35) U/L Alkaline Phosphatase 67 (40-150) U/L Albumin 4.4 (3.3-5.0) g/dL Imaging CT scan - chest: Radiologist's impression: IMPRESSION: 1. No pulmonary embolism or other acute abnormality. 2. Numerous scattered bilateral pulmonary nodules are worse in the left lung. These have significantly increased in size in number compared to the prior exam from 1 year ago consistent with worsening of metastatic disease. Assessment and Plan Assessment and plan (1) COPD exacerbation: Problem comment: Prominent expiratory wheezing with hypoxia. No previous history of COPD. Much of her expiratory wheezing sounds like it may be coming from upper airways as well. She also has some hoarseness suggesting some laryngitis. Likely this is due to RSV. Will try nebulizer treatments and steroids. Oxygen as needed. Hold lisinopril due to upper airway symptoms. Status: Acute (2) Breath shortness: Problem comment: Chronic due to underlying lung disease, deconditioning, anxiety Status: Acute (3) Lung cancer: Problem comment: 2019 right upper lobe lobectomy and mediastinal lymph node dissection. Appears now to have worsening metastatic disease. Status: Acute (4) Anxiety: Problem comment: Prominent symptom tonight Status: Acute (5) Cognitive impairment: Problem comment: Has been on donepezil for a long time. Appears to have significant cognitive dysfunction. Assess for safety in the home well living alone. Fortunately daughter will be here with her for much of the winter. Status: Acute (6) Hypertension: Problem comment: Blood pressure is quite elevated currently. Start metoprolol and monitor Status: Acute (7) GERD (gastroesophageal reflux disease): Status: Acute Plan Admit to the hospital for management of respiratory distress, COPD, hypoxia. Ongoing need to assess multiple other problems noted above. Total time spent is 75 minutes, 55 minutes in coordination of care discussing with patient's daughter and other providers ongoing management of respiratory distress, RSV, cognitive impairment
[2022-03-14] VITALS (9 sets, daily range): BP systolic 142–194; BP diastolic 67–84; PULSE 61–85; RESP 18–36; TEMP 36.8–37.2; O2SAT 90–93; BMI 36.1
[2022-03-14] MEDS: METOPROLOL TARTRATE 25 MG TABLET PO ×3 (01:34→21:30)
[2022-03-14] MEDS: FLECAINIDE ACETATE 50 MG TABLET 150 MG PO ×3 (01:34→23:02)
[2022-03-14] MEDS: DONEPEZIL 10 MG TABLET PO ×2 (01:35→21:30)
[2022-03-14] MEDS: IPRAT-ALBUT 0.5-2.5 MG/3 ML NEB 1 NEB IH ×4 (01:35→23:02)
[2022-03-14] MEDS: LORazepam 0.5 MG TABLET PO ×2 (01:35→21:29)
--- NOTE | 2022-03-14 06:49 | PC.NURSE ---
Shift note: SOB at rest and with exertion, frequent cough with creamy thick sputum. Pt is extremely anxious, if RN would rate it, most likely to the level 9/10, this anxiety increases pts' SOB and orientation level. She is also very NIGHTMUTE, does not use sign language. She has an erlinda on her cellphone to control her hearing aids and the communicator placement in relation to pt. O2 sats 89-90% on room air, 1L O2 applied to assist with hard work of breathing. While asleep O2 sats 91% on 1L NC. Pt is partially incontinent, no c/o pain, no nausea/vomiting since admission to [facility]
[2022-03-14 06:56] LABS: HCO3 VBG 29 mmol/L (21-28); PCO2 VBG 45 mmHG (40-50); PO2 VBG 62.5 mmHG (25-47); pH VBG 7.418 (7.32-7.43)
[2022-03-14] MEDS: FUROSEMIDE 20 MG TABLET PO (09:11)
[2022-03-14] MEDS: BUSPIRONE 10 MG TABLET PO ×3 (09:11→21:30)
[2022-03-14] MEDS: predniSONE 20 MG TABLET 40 MG PO (09:12)
[2022-03-14] MEDS: CITALOPRAM HYDROBROMIDE 20 MG TABLET 30 MG PO (09:12)
[2022-03-14] MEDS: guaiFENesin 100 MG/ML CUP PO ×2 (09:13→16:36)
--- NOTE | 2022-03-14 11:12 | P.IMPN_ITS ---
Progress Note: A&P Assessment and plan (1) COPD exacerbation: Problem details: Prominent expiratory wheezing, hoarseness, with mild hypoxia - 1 L per nasal cannula - some mild improvement overnight. RSV+ continue nebs; steroids, adding procalcitonin to labs this am. CHF peptide is 1000 known metastatic lung ca - will discuss with family Status: Acute (2) Breath shortness: Problem details: Chronic due to underlying lung disease (lobectomy, cancer), current RSV, deconditioning, anxiety Status: Acute (3) Atrial fibrillation: Problem details: rate controlled; continue home meds, adding lopressor and OAC Status: Acute (4) Lung cancer: Problem details: 2019 right upper lobe lobectomy and mediastinal lymph node dissection. Appears now to have worsening metastatic disease. Status: Acute (5) CHF (congestive heart failure): Problem details: BNP 1000 (no previous baseline) Cardiac MR [place] SEPTEMBER 2018 1. Small LV with significant basal anterior wall thickening, hyperdynamic wall motion with near cavity obliteration, and supra normal EF 80%. Normal T1 and ECV. No evidence for amyloidosis. 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 This anatomy can cause HFpEF. 2. Multiple small cysts of both kidneys. 3. DDDR pacemaker in right heart. 4. Two lung masses - Right upper lung-2 x 2 cm irregular mass. Left lower lung-1.2 cm mass. 5. Recommend dedicated scan of the chest, and work-up of these pulmonary masses. 6. I called Dr. Leila Gonzalez and discussed these finding with her. Status: Acute (6) Pacemaker: Problem details: noted Status: Acute (7) Cognitive impairment: Problem details: Has been on donepezil for a long time. Appears to have significant cognitive dysfunction. Assess for safety in the home well living alone. Fortunately daughter will be here with her for much of the winter. Status: Acute (8) Hypertension: Problem details: Blood pressure is quite elevated currently. Start metoprolol and monitor Status: Acute (9) GERD (gastroesophageal reflux disease): Status: Acute Subjective Date Seen: 03/14/22 Interval history: Daily Progress Note - Hospital Medicine Day #: 2 CC: SOB, wheezing -RSV bronchiolitis; metastatic lung cancer OVERNIGHT UPDATES FROM STAFF & MED, LAB, IMAGING UPDATES less SOB than yesterday; coughing but seems a bit better; feels chilled. 145/84, pulse 63, respiratory rate 27, 92% on room air temp 98.5? CBC at admission was reviewed. Unremarkable. Venous blood gas this morning is stable. PH is normal. Bicarb is minimally elevated at 29 Electrolytes were unremarkable as was her renal function yesterday at admission. Her lactate is normal this morning. BNP is 1000 Procalcitonin from yesterday and today were ordered as at onset and are pending CTA from admission IMPRESSION: 1. No pulmonary embolism or other acute abnormality. 2. Numerous scattered bilateral pulmonary nodules are worse in the left lung. These have significantly increased in size in number compared to the prior exam from 1 year ago consistent with worsening of metastatic disease Review of Systems: See subjective Cardiac: No new chest pain/pressure/palpitations. Respiratory: no new dyspnea. GI: No abdominal bloating Objective: Vitals: see above Lungs: rhonchi; tachypneic; speaking in full sentences Cardiac: S1S2. Disposition/Potential discharge - Likely to return to previous living situation. Total time is 35 minutes with greater than 50% spent in counseling and coordination of care. Exam Const: Vital Signs, click to edit/add: Vital Signs - 24 hr 03/13/22 17:36 03/13/22 18:00 03/13/22 19:00 Temperature 99.2 F Pulse Rate 62 68 Pulse Rate [Pulse Oximeter] Pulse Rate [Right Pulse Oximeter] 70 Respiratory Rate 36 H 21 20 Blood Pressure 181/128 H 153/83 H Blood Pressure [Le ft Radial Artery] Blood Pressure [Ri ght Arm] Blood Pressure [Ri ght Upper Arm] 204/84 H Pulse Oximetry 93 97 95 Oxygen Delivery Me thod Room Air Oxygen Flow Rate 03/13/22 20:00 03/13/22 21:00 03/13/22 22:00 Temperature Pulse Rate 67 65 63 Pulse Rate [Pulse Oximeter] Pulse Rate [Right Pulse Oximeter] Respiratory Rate 15 19 20 Blood Pressure 193/85 H 212/80 H 209/70 H Blood Pressure [Le ft Radial Artery] Blood Pressure [Ri ght Arm] Blood Pressure [Ri ght Upper Arm] Pulse Oximetry 94 93 93 Oxygen Delivery Me thod Oxygen Flow Rate 03/13/22 23:00 03/13/22 23:00 03/14/22 02:03 Temperature 99 F Pulse Rate Pulse Rate [Pulse Oximeter] 84 Pulse Rate [Right Pulse Oximeter] 62 Respiratory Rate 20 36 H Blood Pressure Blood Pressure [Le ft Radial Artery] 194/67 H Blood Pressure [Ri ght Arm] Blood Pressure [Ri ght Upper Arm] 207/81 H Pulse Oximetry 91 93 90 Oxygen Delivery Me thod Room Air Room Air Oxygen Flow Rate 03/14/22 02:03 03/14/22 02:40 03/14/22 02:41 Temperature 99 F Pulse Rate Pulse Rate [Pulse Oximeter] Pulse Rate [Right Pulse Oximeter] Respiratory Rate 36 H Blood Pressure Blood Pressure [Le ft Radial Artery] 194/67 H Blood Pressure [Ri ght Arm] Blood Pressure [Ri ght Upper Arm] Pulse Oximetry 90 90 90 Oxygen Delivery Me thod Room Air Room Air Room Air Oxygen Flow Rate 03/14/22 03:48 03/14/22 03:48 03/14/22 03:48 Temperature 98.2 F Pulse Rate 61 Pulse Rate [Pulse Oximeter] 61 Pulse Rate [Right Pulse Oximeter] Respiratory Rate 26 H Blood Pressure Blood Pressure [Le ft Radial Artery] Blood Pressure [Ri ght Arm] Blood Pressure [Ri ght Upper Arm] Pulse Oximetry 93 93 Oxygen Delivery Me thod Nasal Cannula Oxygen Flow Rate 1 03/14/22 07:00 03/14/22 10:57 Temperature 98.5 F Pulse Rate Pulse Rate [Pulse Oximeter] 73 63 Pulse Rate [Right Pulse Oximeter] Respiratory Rate 24 27 H Blood Pressure Blood Pressure [Le ft Radial Artery] Blood Pressure [Ri ght Arm] 176/74 H 145/84 H Blood Pressure [Ri ght Upper Arm] Pulse Oximetry 92 92 Oxygen Delivery Me thod Room Air Room Air Oxygen Flow Rate Labs Labs: Laboratory Results - last 24 hr 03/13/22 03/13/22 03/13/22 17:48 17:50 17:50 WBC 8.65 RBC 4.71 Hgb 15.1 Hct 46.4 MCV 99 MCH 32 MCHC 33 RDW Coeff of Jose Maria 12.6 Plt Count 233 Neut % (Auto) 67.0 Lymph % (Auto) 20.5 [place] % (Auto) 9.8 Eos % (Auto) 1.8 Baso % (Auto) 0.8 Neut # (Auto) 5.79 Lymph # (Auto) 1.77 [place] # (Auto) 0.80 Eos # (Auto) 0.16 Baso # (Auto) 0.07 Abs Immat Gran (auto) 0.01 Imm/Tot Granulo (auto) 0.1 ABG pH ABG pCO2 ABG pO2 ABG HCO3 ABG Total CO2 ABG O2 Saturation ABG Base Excess VBG pH VBG pCO2 VBG pO2 VBG HCO3 Sodium 136 Potassium 4.3 Chloride 101 Carbon Dioxide 30 BUN 23 Creatinine 0.6 Estimated Creat Clear 33.41 Estimated GFR 87 Glucose 131 H Lactate Calcium 9.7 Total Bilirubin 0.8 AST 38 H ALT 20 Alkaline Phosphatase 67 Troponin I NT-Pro-B Natriuret Pep Total Protein 7.1 Albumin 4.4 SARS-CoV-2 (PCR) Negative SARS-CoV-2 Influenza Type A (PCR) Negative PCR FLU A Influenza Type B (PCR) Negative PCR FLU B RSV (PCR) POSITIVE PCR RSV A 03/13/22 03/13/22 03/13/22 17:50 17:50 18:15 WBC RBC Hgb Hct MCV MCH MCHC RDW Coeff of Jose [place] Plt Count Neut % (Auto) Lymph % (Auto) [place] % (Auto) Eos % (Auto) Baso % (Auto) Neut # (Auto) Lymph # (Auto) [place] # (Auto) Eos # (Auto) Baso # (Auto) Abs Immat Gran (auto) Imm/Tot Granulo (auto) ABG pH 7.41 ABG pCO2 43 ABG pO2 71.5 L ABG HCO3 28 ABG Total CO2 24 ABG O2 Saturation 96 ABG Base Excess 2.5 VBG pH VBG pCO2 VBG pO2 VBG HCO3 Sodium Potassium Chloride Carbon Dioxide BUN Creatinine Estimated Creat Clear Estimated GFR Glucose Lactate 1.5 Calcium Total Bilirubin AST ALT Alkaline Phosphatase Troponin I 0.01 NT-Pro-B Natriuret Pep Total Protein Albumin SARS-CoV-2 (PCR) Influenza Type A (PCR) Influenza Type B (PCR) RSV (PCR) 03/13/22 03/13/22 03/14/22 18:52 21:45 06:10 WBC RBC Hgb Hct MCV MCH MCHC RDW Coeff of Jose Maria Plt Count Neut % (Auto) Lymph % (Auto) [place] % (Auto) Eos % (Auto) Baso % (Auto) Neut # (Auto) Lymph # (Auto) [place] # (Auto) Eos # (Auto) Baso # (Auto) Abs Immat Gran (auto) Imm/Tot Granulo (auto) ABG pH ABG pCO2 ABG pO2 ABG HCO3 ABG Total CO2 ABG O2 Saturation ABG Base Excess VBG pH 7.418 VBG pCO2 45 VBG pO2 62.5 H VBG HCO3 29 H Sodium Potassium Chloride Carbon Dioxide BUN Creatinine Estimated Creat Clear Estimated GFR Glucose Lactate 1.1 Calcium Total Bilirubin AST ALT Alkaline Phosphatase Troponin I NT-Pro-B Natriuret Pep 1010 H Total Protein Albumin SARS-CoV-2 (PCR) Influenza Type A (PCR) Influenza Type B (PCR) RSV (PCR)
[2022-03-14 11:20] LABS: Procalcitonin* 0.06 ng/mL (<0.50)
[2022-03-14 11:21] LABS: Procalcitonin* 0.06 ng/mL (<0.50)
[2022-03-14 14:31] LABS: C Reactive Protein* 0.9 mg/dL (0.5-1.0)
[2022-03-14 14:46] LABS: C Reactive Protein* 0.7 mg/dL (0.5-1.0)
[2022-03-14 16:01] LABS: Appearance Urine Clear (Clear); Bilirubin Urine Negative (Negative); Blood Urine 2+ (Negative); Color Urine Yellow (Yellow); Glucose Urine Negative (Negative); Ketones Urine Trace (Negative); Leukocyte Esterase Urine Negative (Negative); Nitrite Urine Negative (Negative); Protein Urine Negative (Negative); Specific Gravity Urine 1.025 (1.000-1.030); Urobilinogen Urine 0.2 (0.2-1.0)
[2022-03-14 16:24] LABS: Bacteria Urine Moderate
--- NOTE | 2022-03-14 19:30 | PC.NURSE ---
Nursing Care Hours: [id number] Pt this shift sitting up in recliner all day, ambulated to bathroom x3. Stable on room air at rest, 92%. Desat to low 80's with ambulation. Pt instructed to call for help with ambulation and to wear supplemental oxygen when walking. Pt found out of chair moving personal items around once and had ambulated to bathroom independently without oxygen. Seo Analyst educated pt about importance of asking for help, due to extreme SOB and needing extra help with oxygen tubing. Pt states she understands and will comply. Chair alarm set. Extreme SOB and audible wheezing heard. Rhonchi inspire and . Eating 50% of meals. Encouraged to increase water intake d/t respiratory vapor. Reddened area of L kong likely d/t restless legs while sitting. Guiefenison given x2, scheduled nebs effective and relieving cough. Per pt report at dinner, pt had a choking episode unwitnessed. No emesis noted, and pt said it happens sometimes. I need to stop eating spicey foods. Reported at shift change.
[2022-03-14] MEDS: RIVAROXABAN 10 MG TABLET 20 MG PO (20:04)
[2022-03-14] MEDS: SODIUM CHLORIDE 0.9 % (FLUSH) 10 ML SYRINGE IVF (21:30)
[2022-03-15] VITALS (14 sets, daily range): BP systolic 152–190; BP diastolic 72–87; PULSE 60–87; RESP 18–36; TEMP 36.4–37.3; O2SAT 91–96
[2022-03-15] MEDS: ALBUTEROL SULFATE 2.5 MG/3 ML VIAL.NEB NEB ×3 (00:44→07:57)
[2022-03-15] MEDS: guaiFENesin 100 MG/ML CUP PO (03:07)
[2022-03-15] MEDS: IPRAT-ALBUT 0.5-2.5 MG/3 ML NEB 1 NEB IH ×3 (05:47→16:16)
[2022-03-15 06:17] LABS: HCO3 VBG 29 mmol/L (21-28); PCO2 VBG 48 mmHG (40-50); PO2 VBG 43.8 mmHG (25-47)
[2022-03-15 06:25] LABS: Hematocrit 42.8 % (33.0-51.0); Mean Corpuscular HGB Conc 33 gm/dL (32-36); Mean Corpuscular Hemoglobin 32 pg (26-34); Mean Corpuscular Volume 98 fL (80-100); Platelet Count* 244 K/uL (140-440); Red Blood Count 4.38 m/uL (4.00-5.20); White Blood Count* 14.35 K/uL (4.50-11.00)
--- NOTE | 2022-03-15 06:26 | PC.NURSE ---
Shift note: The pt has been wheezing, coughing and short of breath even at rest and very short of breath with exertion;The pt was on 1L of oxygen ; oxygen is increased to 2L with Spo2 in the 90s ; PRN Neb, scheduled neb and cough med were given with mild improvement. Coughing up creamy sputum. Denied chest pain. The pt appeared very forgetful. Weakness noted with activity- Bed alarm on as the pt is forgetful and weak.
[2022-03-15 06:27] LABS: Slide Review Reflex No
[2022-03-15 06:44] LABS: Albumin* 4.2 g/dL (3.3-5.0); Chloride* 103 mmol/L (96-114); INR 1.79 (0.91-1.10); Prothrombin Time 21.8 Seconds
[2022-03-15 06:45] LABS: Sodium* 134 mmol/L (135-149)
[2022-03-15 06:47] LABS: Alkaline Phosphatase* 70 U/L (40-150); Aspartate Amino Transferase* 33 U/L (12-35); Bilirubin Total* 0.8 mg/dL (0.1-1.5); Carbon Dioxide* 28 mmol/L (20-32); Creatinine* 0.7 mg/dL (0.5-1.5); Est. Creatinine Clearance* 33.41; Estimated Glomerular Filt Rate 84 ml/min; Total Protein* 6.6 g/dL (6.0-8.3)
[2022-03-15 06:48] LABS: Alanine Aminotransferase* 26 U/L (4-35); Blood Urea Nitrogen* 28 mg/dL (7-30); Calcium* 9.4 mg/dL (8.4-10.6); Glucose* 148 mg/dL (60-115); Magnesium* 1.9 mg/dL (1.5-2.6)
[2022-03-15 06:50] LABS: C Reactive Protein* 1.1 mg/dL (0.5-1.0)
--- NOTE | 2022-03-15 07:53 | CRLHL7_ITS ---
For Patients: As a result of the Century Cures Act, medical imaging exams and procedure reports are released immediately into your electronic medical record. You may view this report before your referring provider. If you have questions, please contact your health care provider. INDICATION: Wheezing. Cough. COMPARISON: November 22, 2018 TECHNIQUE: Single-view study FINDINGS: TUBES AND LINES: Pacer with leads ending in the right atrium and the right ventricle. HEART AND MEDIASTINUM: Stable mild prominence of the cardiac contour. LUNGS AND PLEURAL SPACES: Abnormal lung findings favor CHF though a diffuse inflammatory process is possible.No pleural effusion or pneumothorax. OSSEOUS STRUCTURES: Age-appropriate appearance. No acute focal finding. IMPRESSION: 1. Stable mild prominence of the heart. Pacer normally located. 2. Abnormal lung findings favor CHF though a diffuse inflammatory process is possible. Normal pleural spaces. Dictated by Claus Meier MD @ 03/15/2022 8:45:06 AM (Electronically Signed)
[2022-03-15] MEDS: predniSONE 20 MG TABLET 40 MG PO (07:56)
[2022-03-15 08:41] LABS: ABG PCO2 42 mmHG (35-45); HCO3 ABG 27 mmol/L (21-28); TCO2 ABG 24 mmol/l (21-30); pH ABG 7.42 (7.35-7.45)
[2022-03-15 08:42] LABS: Base Excess ABG 2.1 mmol/L (-3.0-3.0); Oxygen Saturation ABG 98 % (92-100)
--- NOTE | 2022-03-15 08:51 | REH.OT ---
OT/PT: Patient with decline in respiratory status overnight and transferred to CCU2, working with RT this am. Per MD in rounds, OTPTto hold today. Will recheck status tomorrow.
[2022-03-15] MEDS: METHYLPREDNISOLONE SOD SUCC 62.5 MG/ML (125) 125 MG IVP (08:59)
[2022-03-15] MEDS: PIPERACILLIN/TAZOBACTAM 3.375 GM in 0.9 % SODIUM CHLORIDE Mini-bag 100 ML IVPB (08:59)
[2022-03-15] MEDS: FUROSEMIDE 10 MG/ML inj 40 MG IVP ×2 (08:59→16:16)
[2022-03-15] MEDS: CITALOPRAM HYDROBROMIDE 20 MG TABLET 30 MG PO (09:22)
[2022-03-15] MEDS: BUDESONIDE 0.5 MG/2ML NEB NEB ×2 (09:22→22:17)
[2022-03-15] MEDS: BUSPIRONE 10 MG TABLET PO ×3 (09:22→22:10)
[2022-03-15] MEDS: FLECAINIDE ACETATE 50 MG TABLET 75 MG PO ×2 (09:23→22:10)
[2022-03-15] MEDS: METOPROLOL TARTRATE 25 MG TABLET PO ×2 (09:23→22:09)
[2022-03-15] MEDS: SODIUM CHLORIDE 0.9 % (FLUSH) 10 ML SYRINGE IVF ×2 (09:24→22:11)
[2022-03-15] MEDS: FLUTICASONE PROPIONATE NASAL 2 SPRAY NOSTRIL-B (09:24)
--- NOTE | 2022-03-15 09:38 | PC.NURSE ---
Nurse Care Hours: [id number] Upon entering the room, pt was tugging at pulse ox chords and appeared confused. When technical writer introduced self, pt thought technical writer was her daughter and said I feel like I am being tricked because you look just like her. Pt made a comment about men who worked overnight were sleeping in her room. Pt thought it was evening and that she was at home stating I need to get to my fridge for a snack and asking if daughter was at the cabin since she was not here at home. Audible wheezing and coarse crackles heard without auscultation. Use of excessory muscles and face clammy. Pt did not have oxygen on when entered the room, placed Nasal cannula at 3L while ambulating to bathroom, pt denied usisng BSC. 2L while in chair. Hospitalist entered room and was given update. Pt moved to critcal care and new nurse given report.
[2022-03-15 11:39] LABS: NT Pro B Type NatriureticPept* 1490 PG/mL (0-450)
[2022-03-15 11:46] LABS: Procalcitonin* 0.07 ng/mL (<0.50)
--- NOTE | 2022-03-15 12:27 | PM.IMPN1 ---
Progress Note: A&P Assessment and plan (1) COPD exacerbation: Problem details: Prominent expiratory wheezing, hoarseness, w tachypnea. Appears more congested/wet to me this morning, moved to CCU. High-flow initiated. RSV+ Known metastatic lung cancer, discussed with daughter Daniela at great length. Patient will now be DNR DNI and we will discuss intermediate prognosis based on how the next 1-2 days go. Poor long-term prognosis was outlined for her daughter. Status: Acute (2) Breath shortness: Problem details: Chronic due to underlying lung disease (lobectomy, cancer), current RSV, current CHF, deconditioning, anxiety Status: Acute (3) Atrial fibrillation: Problem details: rate controlled; continue flecinide; holding Zestril. adding metoprol. continue OAC Status: Acute (4) Lung cancer: Problem details: 2019 right upper lobe lobectomy and mediastinal lymph node dissection. Appears now to have worsening metastatic disease. Status: Acute (5) CHF (congestive heart failure): Problem details: BNP 1000 (no previous baseline), up to 1500 Cardiac MR [facility] SEPTEMBER 2018 1. Small LV with significant basal anterior wall thickening, hyperdynamic wall motion with near cavity obliteration, and supra normal EF 80%. Normal T1 and ECV. No evidence for amyloidosis. 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 This anatomy can cause HFpEF. 2. Multiple small cysts of both kidneys. 3. DDDR pacemaker in right heart. 4. Two lung masses - Right upper lung-2 x 2 cm irregular mass. Left lower lung-1.2 cm mass. 5. Recommend dedicated scan of the chest, and work-up of these pulmonary masses. 6. I called Dr. Leila Gonzalez and discussed these finding with her. Status: Acute (6) Pacemaker: Problem details: noted Status: Acute (7) Cognitive impairment: Problem details: Has been on donepezil for a long time. Appears to have significant cognitive dysfunction. Assess for safety in the home well living alone. MOCA 17, decreased from 3 years ago. Status: Acute (8) Hypertension: Problem details: Blood pressure is quite elevated currently. Start metoprolol and monitor Status: Acute (9) GERD (gastroesophageal reflux disease): Status: Acute Subjective Date Seen: 03/15/22 Interval history: Daily Progress Note - Hospital Medicine Day #: 3 CC: SOB, wheezing -RSV bronchiolitis; metastatic lung cancer - pt showing decline this morning OVERNIGHT UPDATES FROM STAFF & MED, LAB, IMAGING UPDATES wheezing, tachypnea this morning; more confused. Afebrile Blood pressures mostly 150s to 160s over 70s to 80s diastolic Pulse in the 60s Respiratory rate 18 to 30 even a size 36 We moved her to the CCU and she is now on high-flow 30 L, 30% FiO2 92.5 kilos Blood cell count is now elevated, 14.4. However she did receive p.o. steroids Hemoglobin is stable Platelets are stable ABG at time of transfer from [facility] to CCU, unremarkable. PH 7.4, PO2 85 Sodium is a little depressed but the other electrolytes are all unremarkable, normal creatinine. BNP has increased from 6594-1084 Blood cultures and urine culture negative to date Portable chest this morning 1. Stable mild prominence of the heart. Pacer normally located. 2. Abnormal lung findings favor CHF though a diffuse inflammatory process is possible. Normal pleural spaces. CTA from admission IMPRESSION: 1. No pulmonary embolism or other acute abnormality. 2. Numerous scattered bilateral pulmonary nodules are worse in the left lung. These have significantly increased in size in number compared to the prior exam from 1 year ago consistent with worsening of metastatic disease Review of Systems: See subjective Cardiac: No new chest pain/pressure/palpitations. Respiratory: Respiratory decline with tachypnea, audible wheezing GI: No abdominal bloating Objective: Alert but hard of hearing and confused Vitals: see above Lungs:wheezy, tachypneic, respiratory status looks much more tenuous than it did yesterday Cardiac: S1S2. Disposition/Potential discharge - Likely will need rehab and or lifelong correction Total time is 35 minutes with greater than 50% spent in counseling and coordination of care. Exam Const: Vital Signs, click to edit/add: Vital Signs - 24 hr 03/14/22 15:36 03/14/22 15:00 03/14/22 15:00 Temperature 98.2 F Pulse Rate Pulse Rate [Pulse Oximeter] 68 68 Respiratory Rate 28 H 28 H Blood Pressure [Le ft Radial Artery] Blood Pressure [Ri ght Arm] 142/74 H Pulse Oximetry 91 92 Oxygen Delivery Me thod Room Air Room Air Oxygen Flow Rate Fraction of Inspir ed Oxygen 03/14/22 19:00 03/15/22 01:35 03/15/22 01:35 Temperature 98.2 F Pulse Rate Pulse Rate [Pulse Oximeter] 85 85 Respiratory Rate 18 24 24 Blood Pressure [Le ft Radial Artery] Blood Pressure [Ri ght Arm] 158/77 H Pulse Oximetry 95 Oxygen Delivery Me thod Nasal Cannula Nasal Cannula Oxygen Flow Rate 1 1 Fraction of Inspir ed Oxygen 03/15/22 01:35 03/15/22 01:30 03/15/22 04:20 Temperature 98.3 F Pulse Rate 80 Pulse Rate [Pulse Oximeter] 73 Respiratory Rate 18 Blood Pressure [Le ft Radial Artery] Blood Pressure [Ri ght Arm] 178/83 H Pulse Oximetry 95 95 Oxygen Delivery Me thod Nasal Cannula Oxygen Flow Rate 1 Fraction of Inspir ed Oxygen 03/15/22 04:37 03/15/22 08:00 03/15/22 08:54 Temperature 97.5 F L Pulse Rate Pulse Rate [Pulse Oximeter] 67 63 Respiratory Rate 18 35 H Blood Pressure [Le ft Radial Artery] Blood Pressure [Ri ght Arm] 180/87 H 156/73 H Pulse Oximetry 95 96 Oxygen Delivery Me thod Nasal Cannula Nasal Cannula Oxygen Flow Rate 2 2 30 Fraction of Inspir ed Oxygen 0.40 03/15/22 08:54 03/15/22 07:00 03/15/22 07:00 Temperature Pulse Rate Pulse Rate [Pulse Oximeter] 63 Respiratory Rate 35 H 35 H Blood Pressure [Le ft Radial Artery] Blood Pressure [Ri ght Arm] Pulse Oximetry 96 Oxygen Delivery Me thod Nasal Cannula Nasal Cannula Oxygen Flow Rate 2 Fraction of Inspir ed Oxygen 0.40 03/15/22 10:00 03/15/22 11:00 03/15/22 11:00 Temperature 98.0 F Pulse Rate Pulse Rate [Pulse Oximeter] 60 Respiratory Rate 36 H Blood Pressure [Le ft Radial Artery] 165/72 H Blood Pressure [Ri ght Arm] 152/87 H Pulse Oximetry 96 Oxygen Delivery Me thod High Flow Nasal Ca nnula Oxygen Flow Rate 30 Fraction of Inspir ed Oxygen 30 30 Labs Labs: Laboratory Results - last 24 hr 03/13/22 03/14/22 03/14/22 21:45 06:10 15:45 WBC RBC Hgb Hct MCV MCH MCHC Plt Count INR ABG pH ABG pCO2 ABG pO2 ABG HCO3 ABG Total CO2 ABG O2 Saturation ABG Base Excess VBG pH VBG pCO2 VBG pO2 VBG HCO3 Sodium Potassium Chloride Carbon Dioxide BUN Creatinine Estimated Creat Clear Estimated GFR Glucose Calcium Magnesium Total Bilirubin AST ALT Alkaline Phosphatase C-Reactive Protein 0.7 0.9 NT-Pro-B Natriuret Pep Total Protein Albumin Procalcitonin Urine Color Yellow Urine Appearance Clear Urine pH 5.0 Ur Specific [place] 1.025 Urine Protein Negative Urine Glucose (UA) Negative Urine Ketones Trace A Urine Blood 2+ A Urine Nitrite Negative Urine Bilirubin Negative Urine Urobilinogen 0.2 Ur Leukocyte Esterase Negative Urine RBC 2-5 A Urine WBC 5-10 A Ur Squamous Epith Cells None Urine Bacteria Moderate A 03/15/22 03/15/22 03/15/22 06:09 06:09 06:09 WBC 14.35 H RBC 4.38 Hgb 14.0 Hct 42.8 MCV 98 MCH 32 MCHC 33 Plt Count 244 INR 1.79 H ABG pH ABG pCO2 ABG pO2 ABG HCO3 ABG Total CO2 ABG O2 Saturation ABG Base Excess VBG pH VBG pCO2 VBG pO2 VBG HCO3 Sodium 134 L Potassium 4.0 Chloride 103 Carbon Dioxide 28 BUN 28 Creatinine 0.7 Estimated Creat Clear 33.41 Estimated GFR 84 Glucose 148 H Calcium 9.4 Magnesium 1.9 Total Bilirubin 0.8 AST 33 ALT 26 Alkaline Phosphatase 70 C-Reactive Protein 1.1 H NT-Pro-B Natriuret Pep 1490 H Total Protein 6.6 Albumin 4.2 Procalcitonin 0.07 Urine Color Urine Appearance Urine pH Ur Specific [place] Urine Protein Urine Glucose (UA) Urine Ketones Urine Blood Urine Nitrite Urine Bilirubin Urine Urobilinogen Ur Leukocyte Esterase Urine RBC Urine WBC Ur Squamous Epith Cells Urine Bacteria 03/15/22 03/15/22 06:09 08:35 WBC RBC Hgb Hct MCV MCH MCHC Plt Count INR ABG pH 7.42 ABG pCO2 42 ABG pO2 85.0 ABG HCO3 27 ABG Total CO2 24 ABG O2 Saturation 98 ABG Base Excess 2.1 VBG pH 7.390 VBG pCO2 48 VBG pO2 43.8 VBG HCO3 29 H Sodium Potassium Chloride Carbon Dioxide BUN Creatinine Estimated Creat Clear Estimated GFR Glucose Calcium Magnesium Total Bilirubin AST ALT Alkaline Phosphatase C-Reactive Protein NT-Pro-B Natriuret Pep Total Protein Albumin Procalcitonin Urine Color Urine Appearance Urine pH Ur Specific [place] Urine Protein Urine Glucose (UA) Urine Ketones Urine Blood Urine Nitrite Urine Bilirubin Urine Urobilinogen Ur Leukocyte Esterase Urine RBC Urine WBC Ur Squamous Epith Cells Urine Bacteria
[2022-03-15] MEDS: METHYLPREDNISOLONE SOD SUCC 40 MG/ML IVP (16:15)
--- NOTE | 2022-03-15 18:05 | PC.NURSE ---
End of shift-- Very pleasant and cooperative, primarily alert and oriented, though forgetful as per baseline dementia, patient. VSS, though somewhat hypertensive and tachypneic, and pt is afebrile. She denied any pain. SPO2 maintained >90% with high flow nasal cannula at 30L with 30% FIO2. Both inspiratory and expiratory wheezing and occasional rhonchi noted throughout lung hsu, though dramatically decreased breath sounds in right lower lobe r/t history of lobectomy. Audible wheezing noted continually today. RR from 24-36 and breathing appears labored at rest. Use of abdominal and accessory muscles noted. Occasional dry cough. Telemetry is paced. She denied nausea and ate 75-100% of 3 meals independently. She was up to commode and chair with assist of 1, belt and walker and tolerated it fairly well. Pt is unconsciously incontinent of urine at baseline and Soni catheter was inserted per MD order for accurate I & O with diuretic administration. Pt tolerated procedure well. Soni is patent and drained approximately 550ml of clear, pale yellow urine since this afternoon. Numerous family members have been at bedside today and appear loving and supportive. Report to oncoming shift.
[2022-03-15] MEDS: POTASSIUM CHLORIDE 10 MEQ CAPSULE ER 20 MEQ PO (18:33)
[2022-03-15] MEDS: RIVAROXABAN 10 MG TABLET 20 MG PO (18:34)
[2022-03-15] MEDS: DONEPEZIL 10 MG TABLET PO (22:10)
[2022-03-15] MEDS: LORazepam 0.5 MG TABLET PO (22:11)
[2022-03-16] VITALS (21 sets, daily range): BP systolic 043–168; BP diastolic 65–113; PULSE 60–98; RESP 17–36; TEMP 36.2–37.7; O2SAT 92–98
[2022-03-16] MEDS: IPRAT-ALBUT 0.5-2.5 MG/3 ML NEB 1 NEB IH ×5 (00:34→22:33)
[2022-03-16] MEDS: METHYLPREDNISOLONE SOD SUCC 40 MG/ML IVP ×2 (00:34→11:22)
[2022-03-16] MEDS: SODIUM CHLORIDE 0.9 % (FLUSH) 10 ML SYRINGE IVF ×3 (00:35→20:34)
--- NOTE | 2022-03-16 05:29 | PC.NURSE ---
Shift note: The pt has been on [place] at 30 LPM and Fio2 30% and Spo2 has been in the 90s; the pt has been taking the hiFlow cannula off several time throughout the night; appeared very confused and didn't know where she was; the pt has been reoriented to time, place, and situation. Denied chest pain, no short of breath at rest. Coughing occasionally no sputum noted. Soni is patent and draining dark redd urine. Tele has been showing paced rhythm.
[2022-03-16 06:48] LABS: HCO3 VBG 29 mmol/L (21-28); PCO2 VBG 42 mmHG (40-50); pH VBG 7.449 (7.32-7.43)
[2022-03-16 07:01] LABS: Hematocrit 41.5 % (33.0-51.0); Hemoglobin* 13.5 gm/dL (12.0-16.0); Mean Corpuscular HGB Conc 33 gm/dL (32-36); Mean Corpuscular Hemoglobin 32 pg (26-34); Mean Corpuscular Volume 97 fL (80-100); Platelet Count* 246 K/uL (140-440); Red Blood Count 4.28 m/uL (4.00-5.20); White Blood Count* 8.21 K/uL (4.50-11.00)
[2022-03-16 07:25] LABS: Albumin* 3.6 g/dL (3.3-5.0)
[2022-03-16 07:26] LABS: Chloride* 103 mmol/L (96-114); Potassium* 4.1 mmol/L (3.6-5.1); Sodium* 136 mmol/L (135-149)
[2022-03-16 07:28] LABS: Bilirubin Total* 0.6 mg/dL (0.1-1.5); Creatinine* 0.7 mg/dL (0.5-1.5); Est. Creatinine Clearance* 33.41; Estimated Glomerular Filt Rate 84 ml/min
[2022-03-16 07:29] LABS: Alanine Aminotransferase* 29 U/L (4-35); Alkaline Phosphatase* 61 U/L (40-150); Aspartate Amino Transferase* 32 U/L (12-35); Blood Urea Nitrogen* 38 mg/dL (7-30); Calcium* 9.3 mg/dL (8.4-10.6); Carbon Dioxide* 29 mmol/L (20-32); Glucose* 166 mg/dL (60-115); Total Protein* 6.1 g/dL (6.0-8.3)
[2022-03-16 07:32] LABS: C Reactive Protein* 2.7 mg/dL (0.5-1.0); Slide Review Reflex No
[2022-03-16 07:34] LABS: NT Pro B Type NatriureticPept* 1150 PG/mL (0-450)
[2022-03-16 07:37] LABS: INR 2.21 (0.91-1.10); Prothrombin Time 25.6 Seconds
[2022-03-16 07:42] LABS: Procalcitonin* 0.06 ng/mL (<0.50)
[2022-03-16 07:50] LABS: Troponin I* < 0.01 ng/mL (0.01-0.04)
[2022-03-16] MEDS: ALBUTEROL SULFATE 2.5 MG/3 ML VIAL.NEB NEB (08:44)
[2022-03-16] MEDS: BUDESONIDE 0.5 MG/2ML NEB NEB ×2 (08:44→20:32)
[2022-03-16] MEDS: POTASSIUM CHLORIDE 10 MEQ CAPSULE ER 20 MEQ PO ×2 (11:11→18:14)
[2022-03-16] MEDS: METOPROLOL TARTRATE 25 MG TABLET PO ×2 (11:20→20:35)
[2022-03-16] MEDS: BUSPIRONE 10 MG TABLET PO ×3 (11:20→20:35)
[2022-03-16] MEDS: FLECAINIDE ACETATE 50 MG TABLET 75 MG PO ×2 (11:22→20:36)
[2022-03-16] MEDS: CITALOPRAM HYDROBROMIDE 20 MG TABLET 30 MG PO (11:23)
[2022-03-16] MEDS: FLUTICASONE PROPIONATE NASAL 2 SPRAY NOSTRIL-B (11:26)
--- NOTE | 2022-03-16 13:30 | PC.NURSE ---
Lungs sounds wheezing throughout, O2 stats 94-97% high flow 30 L & 25 FIO2, productive cough with moderate amount of creamy sputum, denies pain, nieves d/gasper, up A1 walker to bedside commode and recliner.
--- NOTE | 2022-03-16 14:22 | PC.NURSE ---
Patient has voided once since nieves d/c unmeasured. Collection hat placed in toilet for future voids.
--- NOTE | 2022-03-16 14:36 | PM.IMPN1 ---
Progress Note: A&P Assessment and plan (1) CHF (congestive heart failure): Problem details: BNP 1000 (no previous baseline), up to 1500 - downtrending now. getting daily weights and orthostatic blood pressures. oxygen, hiflow, continues. s/p lasix IV - getting transitioned to demedex this afternoon, will be morning dose starting tomorrow. echo not updated as of yet. will order for tomorrow. Cardiac MR TRUNG SEPTEMBER 2018 1. Small LV with significant basal anterior wall thickening, hyperdynamic wall motion with near cavity obliteration, and supra normal EF 80%. Normal T1 and ECV. No evidence for amyloidosis. 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 This anatomy can cause HFpEF. 2. Multiple small cysts of both kidneys. 3. DDDR pacemaker in right heart. 4. Two lung masses - Right upper lung-2 x 2 cm irregular mass. Left lower lung-1.2 cm mass. 5. Recommend dedicated scan of the chest, and work-up of these pulmonary masses. 6. I called Dr. Leila Gonzalez and discussed these finding with her. Status: Acute (2) COPD exacerbation: Problem details: Prominent expiratory wheezing, hoarseness, w tachypnea. Appeared more congested and wet on 03/15 so moved to CCU. High-flow initiated. RSV+ Known metastatic lung cancer, discussed with daughter Daniela at great length. Patient will now be DNR DNI and we will discuss intermediate prognosis based on how the next 1-2 days go. Poor long-term prognosis was outlined for her daughter. Status: Acute (3) Breath shortness: Problem details: Chronic due to underlying lung disease (lobectomy, cancer), current RSV, current CHF, deconditioning, anxiety Status: Acute (4) Atrial fibrillation: Problem details: rate controlled; continue flecinide; holding Zestril. adding metoprol. continue OAC Status: Acute (5) Lung cancer: Problem details: 2019 right upper lobe lobectomy and mediastinal lymph node dissection. Appears now to have worsening metastatic disease. Status: Acute (6) Pacemaker: Problem details: noted Status: Acute (7) Cognitive impairment: Problem details: Has been on donepezil for a long time. Appears to have significant cognitive dysfunction. Assess for safety in the home well living alone. MOCA 17, decreased from 3 years ago. Status: Acute (8) Hypertension: Problem details: Blood pressure is quite elevated currently. Start metoprolol and monitor Status: Acute (9) GERD (gastroesophageal reflux disease): Status: Acute Subjective Date Seen: 03/16/22 Interval history: Daily Progress Note - Hospital Medicine Day #: 4 CC: SOB, wheezing -RSV bronchiolitis; metastatic lung cancer OVERNIGHT UPDATES FROM STAFF & MED, LAB, IMAGING UPDATES pretty remarkable rally in the last 24 hours. much less wheezing; more interactive. mentally sharper. decreasing hiflow need; RT following. Afebrile overnight Blood pressure 160s over 80s, 140s over 60s Pulse rate 60s Respiratory rate 17 to 19 Pulse ox 96% on high-flow nasal cannula, 30 L 27% FiO2 CBC reflects that her isolated leukocytosis has resolved. Her hemoglobin is stable. Platelets are stable. PH is 7.45 No CO2 retention Electrolytes are stable. Renal function is stable. Potassium is 4.1 despite IV Lasix x2 yesterday. Troponin is undetectable. CRP is only minimally elevated 1.1-2.7 ProBNP down trending. Procalcitonin normal. Blood cultures negative to date Urine culture growing staph epi CTA from admission IMPRESSION: 1. No pulmonary embolism or other acute abnormality. 2. Numerous scattered bilateral pulmonary nodules are worse in the left lung. These have significantly increased in size in number compared to the prior exam from 1 year ago consistent with worsening of metastatic disease Review of Systems: See subjective Cardiac: No new chest pain/pressure/palpitations. Respiratory: Respiratory decline with tachypnea, audible wheezing GI: No abdominal bloating Objective: Alert but hard of hearing and confused Vitals: see above Lungs:wheezy, tachypneic, respiratory status looks much more tenuous than it did yesterday Cardiac: S1S2. Disposition/Potential discharge - Likely will need rehab and or lifelong care home Total time is 35 minutes with greater than 50% spent in counseling and coordination of care. Exam Const: Vital Signs, click to edit/add: Vital Signs - 24 hr 03/16/22 13:19 03/15/22 15:00 03/15/22 15:00 Temperature 99.1 F Pulse Rate Pulse Rate [Pulse Oximeter] 81 Respiratory Rate 24 24 Blood Pressure [Le ft Radial Artery] 180/83 H Blood Pressure [Ri ght Arm] Pulse Oximetry 95 95 Oxygen Delivery Me thod High Flow Nasal Ca nnula High Flow Nasal Ca nnula Oxygen Flow Rate 30 30 30 Fraction of Inspir ed Oxygen 25 30 30 03/15/22 15:00 03/15/22 16:47 03/15/22 16:50 Temperature Pulse Rate 64 Pulse Rate [Pulse Oximeter] 81 Respiratory Rate 24 24 Blood Pressure [Le ft Radial Artery] Blood Pressure [Ri ght Arm] Pulse Oximetry 95 Oxygen Delivery Me thod High Flow Nasal Ca nnula Oxygen Flow Rate 30 Fraction of Inspir ed Oxygen 30 03/15/22 16:53 03/15/22 21:00 03/15/22 20:00 Temperature 98 F Pulse Rate 64 Pulse Rate [Pulse Oximeter] 87 Respiratory Rate 36 H Blood Pressure [Le ft Radial Artery] Blood Pressure [Ri ght Arm] 190/76 H Pulse Oximetry 91 Oxygen Delivery Me thod High Flow Nasal Ca nnula Oxygen Flow Rate 30 Fraction of Inspir ed Oxygen 30 30 03/16/22 00:30 03/16/22 00:30 03/16/22 00:53 Temperature 98.7 F Pulse Rate Pulse Rate [Pulse Oximeter] 80 80 Respiratory Rate 20 36 H 20 Blood Pressure [Le ft Radial Artery] Blood Pressure [Ri ght Arm] 153/75 H Pulse Oximetry 95 95 Oxygen Delivery Me thod High Flow Nasal Ca nnula High Flow Nasal Ca nnula Oxygen Flow Rate 30 30 Fraction of Inspir ed Oxygen 30 30 03/16/22 01:04 03/16/22 03:00 03/16/22 03:00 Temperature Pulse Rate 73 Pulse Rate [Pulse Oximeter] 60 Respiratory Rate 20 Blood Pressure [Le ft Radial Artery] Blood Pressure [Ri ght Arm] Pulse Oximetry 94 Oxygen Delivery Me thod Oxygen Flow Rate Fraction of Inspir ed Oxygen 03/16/22 03:00 03/16/22 02:28 03/16/22 05:29 Temperature 98 F Pulse Rate Pulse Rate [Pulse Oximeter] 60 Respiratory Rate 20 Blood Pressure [Le ft Radial Artery] Blood Pressure [Ri ght Arm] 147/65 H Pulse Oximetry 95 Oxygen Delivery Me thod High Flow Nasal Ca nnula Oxygen Flow Rate 30 Fraction of Inspir ed Oxygen 30 30 30 03/16/22 07:06 03/16/22 07:00 03/16/22 07:00 Temperature Pulse Rate 60 Pulse Rate [Pulse Oximeter] Respiratory Rate 19 19 Blood Pressure [Le ft Radial Artery] Blood Pressure [Ri ght Arm] Pulse Oximetry 98 Oxygen Delivery Me thod High Flow Nasal Ca nnula Oxygen Flow Rate 30 Fraction of Inspir ed Oxygen 25 03/16/22 07:00 03/16/22 08:00 03/16/22 11:00 Temperature 97.2 F L Pulse Rate Pulse Rate [Pulse Oximeter] 98 66 Respiratory Rate 19 Blood Pressure [Le ft Radial Artery] 168/80 H Blood Pressure [Ri ght Arm] Pulse Oximetry 94 Oxygen Delivery Me thod High Flow Nasal Ca nnula Oxygen Flow Rate 30 Fraction of Inspir ed Oxygen 25 25 03/16/22 12:00 Temperature 98.4 F Pulse Rate Pulse Rate [Pulse Oximeter] 69 Respiratory Rate 17 Blood Pressure [Le ft Radial Artery] 043/74 Blood Pressure [Ri ght Arm] Pulse Oximetry 96 Oxygen Delivery Me thod High Flow Nasal Ca nnula Oxygen Flow Rate 30 Fraction of Inspir ed Oxygen 25 Labs Labs: Laboratory Results - last 24 hr 03/16/22 03/16/22 03/16/22 06:40 06:40 06:40 WBC 8.21 RBC 4.28 Hgb 13.5 Hct 41.5 MCV 97 MCH 32 MCHC 33 Plt Count 246 INR 2.21 H VBG pH VBG pCO2 VBG pO2 VBG HCO3 Sodium 136 Potassium 4.1 Chloride 103 Carbon Dioxide 29 BUN 38 H Creatinine 0.7 Estimated Creat Clear 33.41 Estimated GFR 84 Glucose 166 H Calcium 9.3 Magnesium 2.0 Total Bilirubin 0.6 AST 32 ALT 29 Alkaline Phosphatase 61 Troponin I < 0.01 L C-Reactive Protein 2.7 H NT-Pro-B Natriuret Pep 1150 H Total Protein 6.1 Albumin 3.6 Procalcitonin 0.06 03/16/22 06:40 WBC RBC Hgb Hct MCV MCH MCHC Plt Count INR VBG pH 7.449 H VBG pCO2 42 VBG pO2 81.0 H VBG HCO3 29 H Sodium Potassium Chloride Carbon Dioxide BUN Creatinine Estimated Creat Clear Estimated GFR Glucose Calcium Magnesium Total Bilirubin AST ALT Alkaline Phosphatase Troponin I C-Reactive Protein NT-Pro-B Natriuret Pep Total Protein Albumin Procalcitonin
--- NOTE | 2022-03-16 14:37 | PC.SOCIAL ---
Discharge planning- Phone call to pt's daughter, Daniela Jacobo, at [phone]. Discussed discharge planning. Daniela informs that the family and pt have made the decision with MD Arteaga that it is best for pt to discharge to a SNF for short-term rehab stay. Family preference is to place pt in a SNF in [place]. Explained that there are limited beds at all facilities at this time. Contacted the following facilities for SNF placement. 1. [facility]- Phone call to Roseann Nicholson in admissions. There is an open bed in a shared room. Checked with Daniela and she is ok with proceeding with a shared room but prefers a private room if it is available. Left a voicemail for Roseann Nicholson at [facility] informing her that family is ok with a shared room and asked that [facility] continue to assess pt. 2. [facility]- Phone call to Ashlee. There is potential openings next week but the admissions worker (Violetta Zuniga) is not back in the office until Saturday. Faxed referral to [facility]. 3. [facility] in [place]- Phone call to [facility]. There is potential openings for next week. Faxed referral. 4. [facility] in [place]- There are open beds. Faxed referral. Provided an update to pt's daughter, Flakita Jacobo.
--- NOTE | 2022-03-16 14:51 | PC.NURSE ---
REVIEWED KERRIE GARCIA'S CHARTING AND IN AGREEMENT.
--- NOTE | 2022-03-16 15:09 | PC.SOCIAL ---
Discharge planning- Received a phone call from Rufina in admissions at [facility] in [place]. Rufina asks when pt will be ready for discharge from [facility]. Informed that [facility] is looking at Saturday (03/19/22) as an anticipated discharge date. Rufina informs that [place] is likely to accept pt but states that she will touch base on Saturday morning as she has to look into facility rules regarding RSV precautions and she will provide an admission decision Saturday.
[2022-03-16] MEDS: TORSEMIDE 20 MG TABLET PO (15:23)
[2022-03-16] MEDS: RIVAROXABAN 10 MG TABLET 20 MG PO (18:14)
[2022-03-16] MEDS: DONEPEZIL 10 MG TABLET PO (20:35)
[2022-03-16] MEDS: LORazepam 0.5 MG TABLET PO (20:35)
[2022-03-17] VITALS (12 sets, daily range): BP systolic 130–161; BP diastolic 56–93; PULSE 62–86; RESP 20; TEMP 35.9–36.8; O2SAT 90–93
--- NOTE | 2022-03-17 03:33 | PC.NURSE ---
Pt had persistent cough all night. LS very wheezy and coarse. Pt on Hi Flow NC 30/25 all night to maintain sats in the low 90s. Anytime removed her sats drop immediately into and below 80. Pt up bedside commode with A1. Pt also very incontinent of urine. Able to stand and maneuver self in and out of bed. Afebrile. Reporting zero pain. SOB with any type of movement or exertion even positioning self in bed.
[2022-03-17] MEDS: IPRAT-ALBUT 0.5-2.5 MG/3 ML NEB 1 NEB IH ×4 (05:24→22:37)
[2022-03-17 08:19] LABS: Hematocrit 40.6 % (33.0-51.0); Hemoglobin* 13.1 gm/dL (12.0-16.0); Mean Corpuscular HGB Conc 32 gm/dL (32-36); Mean Corpuscular Hemoglobin 32 pg (26-34); Mean Corpuscular Volume 98 fL (80-100); Platelet Count* 256 K/uL (140-440); Red Blood Count 4.15 m/uL (4.00-5.20); White Blood Count* 11.18 K/uL (4.50-11.00)
[2022-03-17 08:20] LABS: HCO3 VBG 32 mmol/L (21-28); PCO2 VBG 45 mmHG (40-50); PO2 VBG 78.7 mmHG (25-47)
[2022-03-17 08:22] LABS: Slide Review Reflex No
[2022-03-17 08:50] LABS: INR 1.62 (0.91-1.10); Prothrombin Time 20.2 Seconds
[2022-03-17 08:57] LABS: Albumin* 3.3 g/dL (3.3-5.0); Chloride* 104 mmol/L (96-114)
[2022-03-17 08:58] LABS: Potassium* 4.1 mmol/L (3.6-5.1); Sodium* 137 mmol/L (135-149)
[2022-03-17 09:00] LABS: Alkaline Phosphatase* 52 U/L (40-150); Aspartate Amino Transferase* 33 U/L (12-35); Bilirubin Total* 0.7 mg/dL (0.1-1.5); Carbon Dioxide* 29 mmol/L (20-32); Creatinine* 0.7 mg/dL (0.5-1.5); Est. Creatinine Clearance* 33.41; Estimated Glomerular Filt Rate 84 ml/min; Total Protein* 5.7 g/dL (6.0-8.3)
[2022-03-17 09:01] LABS: Alanine Aminotransferase* 30 U/L (4-35); Blood Urea Nitrogen* 45 mg/dL (7-30); Calcium* 8.9 mg/dL (8.4-10.6); Glucose* 100 mg/dL (60-115); Magnesium* 2.2 mg/dL (1.5-2.6)
[2022-03-17 09:03] LABS: C Reactive Protein* 1.5 mg/dL (0.5-1.0)
[2022-03-17 09:09] LABS: NT Pro B Type NatriureticPept* 722 PG/mL (0-450)
[2022-03-17 09:12] LABS: Troponin I* 0.01 ng/mL (0.01-0.04)
[2022-03-17 09:16] LABS: Procalcitonin* 0.06 ng/mL (<0.50)
--- NOTE | 2022-03-17 10:38 | P.IMPN_ITS ---
Progress Note: A&P Assessment and plan (1) COPD exacerbation: Problem details: Patient no longer has prominent expiratory wheezing, hoarseness, w tachypnea. Less chest congestion now that she has had in the past. Still requiring high- flow oxygen supplementation for now. RSV+ status. Known metastatic lung cancer, discussed with daughter Daniela at great length. Patient will now be DNR DNI and we will discuss intermediate prognosis based on how the next 1-2 days go. Poor long-term prognosis was outlined for her daughter. Status: Acute Assessment and Plan: Continue with bronchodilator therapy. Continue with prednisone burst therapy for now. Will stop prednisone burst therapy on day 7, which is 2 days from now. Continue with the high-flow humidified oxygen administration for now. (2) Respiratory syncytial virus (RSV) laryngotracheobronchitis: Problem details: Likely her RSV infection exacerbated underlying COPD. Status: Acute Assessment and Plan: Continue with supportive measures as specified above. (3) Acute hypoxemic respiratory failure: Status: Acute Assessment and Plan: Requiring less oxygen support. (4) Lung cancer: Problem details: 2019 right upper lobe lobectomy and mediastinal lymph node dissection. Appears now to have worsening metastatic disease, with greater than 30 nodules in both lungs now, left more so than right, with largest nodule of 1.5 cm diameter. Status: Acute (5) Breath shortness: Problem details: Chronic due to underlying lung disease (lobectomy, cancer), current RSV, current CHF, deconditioning, anxiety Status: Acute (6) CHF (congestive heart failure): Problem details: BNP 1000 (no previous baseline), up to 1500 - downtrending now. getting daily weights and orthostatic blood pressures. oxygen, hiflow, continues. s/p lasix IV - getting transitioned to demedex this afternoon, will be morning dose starting tomorrow. echo not updated as of yet, scheduled for today. Cardiac MR W[place] SEPTEMBER 2018 1. Small LV with significant basal anterior wall thickening, hyperdynamic wall motion with near cavity obliteration, and supra normal EF 80%. Normal T1 and ECV. No evidence for amyloidosis. 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 This anatomy can cause HFpEF. 2. Multiple small cysts of both kidneys. 3. DDDR pacemaker in right heart. 4. Two lung masses - Right upper lung-2 x 2 cm irregular mass. Left lower lung-1.2 cm mass. 5. Recommend dedicated scan of the chest, and work-up of these pulmonary masses. Status: Acute (7) Atrial fibrillation: Problem details: rate controlled; continue flecinide; holding Zestril. adding metoprol. continue OAC Status: Acute (8) Cognitive impairment: Problem details: Has been on donepezil for a long time. Appears to have significant cognitive dysfunction. Assess for safety in the home well living alone. MOCA 17, decreased from 3 years ago. Status: Acute (9) Hypertension: Problem details: Blood pressure is quite elevated currently. Start metoprolol and monitor Status: Acute (10) Anxiety: Problem details: Prominent symptom intermittently Status: Acute (11) GERD (gastroesophageal reflux disease): Problem details: Baseline PPI providing adequate relief Status: Acute (12) Pacemaker: Problem details: Due to sick sinus syndrome Status: Acute Plan 1. Reviewed with patient. 2. I would like to review with other family member when they are available. 3. For now continue with oxygen support but try to wean the oxygen if at all possible. Given the amount of rhonchi that she still has the humidified air would still be of benefit for her. Continue to work with respiratory therapy. 4. Continue with other supportive measures for now. 5. Continue to work with physical therapy and occupational therapy. 6. Discharge disposition plan still needing to be determined. 7. Patient agreeable to above stated plans and recommendations. 8. Change inpatient status from ICU status to inpatient routine floor care sta tus. Time Spent With Patient Total time spent: 45 minutes Subjective Time Seen by Provider: 08:00 Date Seen: 03/17/22 Interval history: Hospital day 5. Patient asleep when I walk in to see her this morning. She is easily arouse by my simply calling out her name. She is very hard of hearing. Indicates she feels well. She slept well. Still utilizing high-flow oxygen via nasal cannula. Denies dyspnea at rest, paroxysmal nocturnal dyspnea, or orthopnea. Still has loose sounding cough, at times productive of clear sputum. No hemoptysis.. Still has a hoarse voice. Denies chest heaviness, pressure, tightness, or pain. Denies syncope or near-syncope. Appetite slowly improving. Denies nausea or vomiting. Tolerating increased activities but with persistent tachypnea and hypoxemia with minimal exertion. Exam Narrative: Exam Narrative: Appears comfortable, no acute distress. Very hard of hearing. Engages in meaningful conversation when I speak slowly and loud enough for her. Vision is grossly normal. Cranial nerves 3-12 otherwise grossly intact. Alert, oriented to self and in part to place, not so much to time or situation. Friendly, articulate, cooperative. Mood and affect are congruent. No obvious focal motor neurologic deficits peripherally. Lungs with scattered rhonchi without wheezing or rales. Good air entry and exchange. Chest wall excursions are full. Heart tones with regular rhythm, normal S1-S2. Grade 2/6 systolic murmur. No gallop or rub. PMI not laterally displaced. Abdomen with active bowel sounds, soft, nontender. No rebound or guarding. No organomegaly or masses. Extremities without edema. Palpable pulses upper and lower extremities. Capillary refill less than 3 seconds in upper extremities. Skin is warm and intact. No rashes, cyanosis, petechiae, or ecchymosis. Const: Vital Signs, click to edit/add: Vital Signs - 24 hr 03/16/22 13:19 03/16/22 11:00 03/16/22 12:00 Temperature 98.4 F Pulse Rate Pulse Rate [Pulse Oximeter] 66 69 Pulse Rate [orthos tatic lying Pulse Oximeter] Pulse Rate [orthos tatic sitting Puls e Oximeter] Pulse Rate [orthos tatic standing Pul se Oximeter] Respiratory Rate 17 Blood Pressure [Le ft Radial Artery] 043/74 Blood Pressure [Ri ght Arm] Blood Pressure [or thostatic lying] Blood Pressure [or thostatic sitting Left Arm] Blood Pressure [or thostatic standing Left Arm] Pulse Oximetry 96 Oxygen Delivery Me thod High Flow Nasal Ca nnula Oxygen Flow Rate 30 30 Fraction of Inspir ed Oxygen 25 25 03/16/22 15:44 03/16/22 15:00 03/16/22 16:00 Temperature 98.3 F Pulse Rate Pulse Rate [Pulse Oximeter] 80 Pulse Rate [orthos tatic lying Pulse Oximeter] 66 Pulse Rate [orthos tatic sitting Puls e Oximeter] 68 Pulse Rate [orthos tatic standing Pul se Oximeter] 74 Respiratory Rate 20 20 Blood Pressure [Le ft Radial Artery] Blood Pressure [Ri ght Arm] 155/78 H Blood Pressure [or thostatic lying] 155/72 H Blood Pressure [or thostatic sitting Left Arm] 150/89 H Blood Pressure [or thostatic standing Left Arm] 141/113 H Pulse Oximetry 96 93 Oxygen Delivery Me thod High Flow Nasal Ca nnula High Flow Nasal Ca nnula Oxygen Flow Rate 30 30 Fraction of Inspir ed Oxygen 25 25 03/16/22 15:00 03/16/22 18:00 03/16/22 19:19 Temperature 99.9 F H Pulse Rate 61 Pulse Rate [Pulse Oximeter] 80 61 Pulse Rate [orthos tatic lying Pulse Oximeter] Pulse Rate [orthos tatic sitting Puls e Oximeter] Pulse Rate [orthos tatic standing Pul se Oximeter] Respiratory Rate 20 18 Blood Pressure [Le ft Radial Artery] Blood Pressure [Ri ght Arm] 147/71 H Blood Pressure [or thostatic lying] Blood Pressure [or thostatic sitting Left Arm] Blood Pressure [or thostatic standing Left Arm] Pulse Oximetry 94 Oxygen Delivery Me thod High Flow Nasal Ca nnula Oxygen Flow Rate 30 Fraction of Inspir ed Oxygen 25 03/16/22 19:54 03/16/22 22:18 03/16/22 22:36 Temperature Pulse Rate 61 Pulse Rate [Pulse Oximeter] 61 Pulse Rate [orthos tatic lying Pulse Oximeter] Pulse Rate [orthos tatic sitting Puls e Oximeter] Pulse Rate [orthos tatic standing Pul se Oximeter] Respiratory Rate 20 Blood Pressure [Le ft Radial Artery] Blood Pressure [Ri ght Arm] Blood Pressure [or thostatic lying] Blood Pressure [or thostatic sitting Left Arm] Blood Pressure [or thostatic standing Left Arm] Pulse Oximetry Oxygen Delivery Me thod Oxygen Flow Rate Fraction of Inspir ed Oxygen 25 03/16/22 22:37 03/16/22 22:43 03/17/22 01:29 Temperature 98.6 F Pulse Rate Pulse Rate [Pulse Oximeter] 68 86 Pulse Rate [orthos tatic lying Pulse Oximeter] Pulse Rate [orthos tatic sitting Puls e Oximeter] Pulse Rate [orthos tatic standing Pul se Oximeter] Respiratory Rate 20 20 20 Blood Pressure [Le ft Radial Artery] Blood Pressure [Ri ght Arm] 161/93 H Blood Pressure [or thostatic lying] Blood Pressure [or thostatic sitting Left Arm] Blood Pressure [or thostatic standing Left Arm] Pulse Oximetry 92 95 Oxygen Delivery Me thod High Flow Nasal Ca nnula High Flow Nasal Ca nnula Oxygen Flow Rate 30 30 Fraction of Inspir ed Oxygen 25 25 03/17/22 02:17 03/17/22 03:11 03/17/22 05:35 Temperature 97.6 F Pulse Rate Pulse Rate [Pulse Oximeter] 83 83 Pulse Rate [orthos tatic lying Pulse Oximeter] Pulse Rate [orthos tatic sitting Puls e Oximeter] Pulse Rate [orthos tatic standing Pul se Oximeter] Respiratory Rate 20 20 Blood Pressure [Le ft Radial Artery] 161/93 H Blood Pressure [Ri ght Arm] Blood Pressure [or thostatic lying] Blood Pressure [or thostatic sitting Left Arm] Blood Pressure [or thostatic standing Left Arm] Pulse Oximetry 93 91 Oxygen Delivery Me thod High Flow Nasal Ca nnula Oxygen Flow Rate 30 Fraction of Inspir ed Oxygen 25 03/17/22 08:00 03/17/22 07:00 03/17/22 07:00 Temperature 97.6 F Pulse Rate 66 Pulse Rate [Pulse Oximeter] 74 Pulse Rate [orthos tatic lying Pulse Oximeter] Pulse Rate [orthos tatic sitting Puls e Oximeter] Pulse Rate [orthos tatic standing Pul se Oximeter] Respiratory Rate 20 20 Blood Pressure [Le ft Radial Artery] 131/65 Blood Pressure [Ri ght Arm] Blood Pressure [or thostatic lying] Blood Pressure [or thostatic sitting Left Arm] Blood Pressure [or thostatic standing Left Arm] Pulse Oximetry 93 93 Oxygen Delivery Me thod High Flow Nasal Ca nnula High Flow Nasal Ca nnula Oxygen Flow Rate 30 30 Fraction of Inspir ed Oxygen 21 21 03/17/22 08:00 Temperature Pulse Rate Pulse Rate [Pulse Oximeter] Pulse Rate [orthos tatic lying Pulse Oximeter] Pulse Rate [orthos tatic sitting Puls e Oximeter] Pulse Rate [orthos tatic standing Pul se Oximeter] Respiratory Rate Blood Pressure [Le ft Radial Artery] Blood Pressure [Ri ght Arm] Blood Pressure [or thostatic lying] Blood Pressure [or thostatic sitting Left Arm] Blood Pressure [or thostatic standing Left Arm] Pulse Oximetry Oxygen Delivery Me thod Oxygen Flow Rate Fraction of Inspir ed Oxygen 21 Documenting provider has reviewed patient's vital signs: yes Labs Labs: Laboratory Results - last 24 hr 03/17/22 03/17/22 03/17/22 04:00 07:55 07:55 WBC 11.18 H RBC 4.15 Hgb 13.1 Hct 40.6 MCV 98 MCH 32 MCHC 32 Plt Count 256 INR 1.62 H VBG pH 7.460 H VBG pCO2 45 VBG pO2 78.7 H VBG HCO3 32 H Sodium Potassium Chloride Carbon Dioxide BUN Creatinine Estimated Creat Clear Estimated GFR Glucose Calcium Magnesium Total Bilirubin AST ALT Alkaline Phosphatase Troponin I C-Reactive Protein NT-Pro-B Natriuret Pep Total Protein Albumin Procalcitonin 03/17/22 07:55 WBC RBC Hgb Hct MCV MCH MCHC Plt Count INR VBG pH VBG pCO2 VBG pO2 VBG HCO3 Sodium 137 Potassium 4.1 Chloride 104 Carbon Dioxide 29 BUN 45 H Creatinine 0.7 Estimated Creat Clear 33.41 Estimated GFR 84 Glucose 100 Calcium 8.9 Magnesium 2.2 Total Bilirubin 0.7 AST 33 ALT 30 Alkaline Phosphatase 52 Troponin I 0.01 C-Reactive Protein 1.5 H NT-Pro-B Natriuret Pep 722 H Total Protein 5.7 L Albumin 3.3 Procalcitonin 0.06
[2022-03-17] MEDS: BUDESONIDE 0.5 MG/2ML NEB NEB ×2 (10:44→20:31)
[2022-03-17] MEDS: METOPROLOL TARTRATE 25 MG TABLET PO ×2 (10:46→20:32)
[2022-03-17] MEDS: FLECAINIDE ACETATE 50 MG TABLET 75 MG PO ×2 (10:47→20:31)
[2022-03-17] MEDS: POTASSIUM CHLORIDE 10 MEQ CAPSULE ER 20 MEQ PO ×2 (10:47→18:35)
[2022-03-17] MEDS: BUSPIRONE 10 MG TABLET PO ×3 (10:47→20:32)
[2022-03-17] MEDS: predniSONE 20 MG TABLET 40 MG PO (10:47)
[2022-03-17] MEDS: TORSEMIDE 20 MG TABLET PO (10:48)
[2022-03-17] MEDS: CITALOPRAM HYDROBROMIDE 20 MG TABLET 30 MG PO (10:48)
[2022-03-17] MEDS: FLUTICASONE PROPIONATE NASAL 2 SPRAY NOSTRIL-B (10:48)
[2022-03-17] MEDS: SODIUM CHLORIDE 0.9 % (FLUSH) 10 ML SYRINGE IVF ×2 (10:49→20:34)
--- NOTE | 2022-03-17 18:00 | PC.NURSE ---
Patient on RA today. Oxygen saturations maintained in the mid 90's. Oxygen via NC at 3-5L used while up to the BR. Pt still very SOB with any exertion. Demonstrates a frequent/productive cough. Scheduled nebs given. Patient had echo done this shift.
[2022-03-17] MEDS: RIVAROXABAN 10 MG TABLET 20 MG PO (18:35)
[2022-03-17] MEDS: DONEPEZIL 10 MG TABLET PO (20:32)
[2022-03-17] MEDS: LORazepam 0.5 MG TABLET PO (20:32)
[2022-03-18] VITALS (8 sets, daily range): BP systolic 124–153; BP diastolic 50–79; PULSE 60–88; RESP 16–22; TEMP 36.4–37.1; O2SAT 92–94
[2022-03-18] MEDS: IPRAT-ALBUT 0.5-2.5 MG/3 ML NEB 1 NEB IH ×4 (05:48→23:10)
--- NOTE | 2022-03-18 06:15 | PC.NURSE ---
Shift note: Pt continuous to have persistent productive cough, Afebrile but complained of mild abd discomfort. O2 dropped below 88% and oxygen 0.5L given. Pt complained of feeling tied. Able to sleep very well.
[2022-03-18 06:44] LABS: HCO3 VBG 32 mmol/L (21-28); PCO2 VBG 48 mmHG (40-50); PO2 VBG 50.4 mmHG (25-47); pH VBG 7.432 (7.32-7.43)
[2022-03-18 06:50] LABS: Hematocrit 40.4 % (33.0-51.0); Hemoglobin* 13.1 gm/dL (12.0-16.0); Mean Corpuscular HGB Conc 32 gm/dL (32-36); Mean Corpuscular Hemoglobin 32 pg (26-34); Mean Corpuscular Volume 99 fL (80-100); Platelet Count* 287 K/uL (140-440); White Blood Count* 13.45 K/uL (4.50-11.00)
[2022-03-18 07:01] LABS: INR 1.47 (0.91-1.10); Prothrombin Time 18.7 Seconds
[2022-03-18 07:08] LABS: Slide Review Reflex No
[2022-03-18 07:12] LABS: Albumin* 3.2 g/dL (3.3-5.0); Chloride* 105 mmol/L (96-114)
[2022-03-18 07:13] LABS: Chloride* 105 mmol/L (96-114); Potassium* 4.4 mmol/L (3.6-5.1); Sodium* 138 mmol/L (135-149)
[2022-03-18 07:14] LABS: Albumin* 3.2 g/dL (3.3-5.0); Potassium* 4.4 mmol/L (3.6-5.1); Sodium* 138 mmol/L (135-149)
[2022-03-18 07:15] LABS: Creatinine* 0.7 mg/dL (0.5-1.5); Est. Creatinine Clearance* 33.41; Estimated Glomerular Filt Rate 84 ml/min
[2022-03-18 07:16] LABS: Alanine Aminotransferase* 38 U/L (4-35); Alkaline Phosphatase* 52 U/L (40-150); Aspartate Amino Transferase* 33 U/L (12-35); Bilirubin Total* 0.5 mg/dL (0.1-1.5); Blood Urea Nitrogen* 40 mg/dL (7-30); Calcium* 8.9 mg/dL (8.4-10.6); Carbon Dioxide* 29 mmol/L (20-32); Creatinine* 0.7 mg/dL (0.5-1.5); Est. Creatinine Clearance* 33.41; Estimated Glomerular Filt Rate 84 ml/min; Glucose* 100 mg/dL (60-115); Magnesium* 2.2 mg/dL (1.5-2.6); Total Protein* 5.3 g/dL (6.0-8.3)
[2022-03-18 07:17] LABS: Blood Urea Nitrogen* 39 mg/dL (7-30); Calcium* 8.8 mg/dL (8.4-10.6); Carbon Dioxide* 29 mmol/L (20-32); Glucose* 100 mg/dL (60-115)
[2022-03-18 07:18] LABS: C Reactive Protein* 1.3 mg/dL (0.5-1.0)
[2022-03-18 07:24] LABS: NT Pro B Type NatriureticPept* 484 PG/mL (0-450)
[2022-03-18 07:27] LABS: Troponin I* 0.01 ng/mL (0.01-0.04)
[2022-03-18 07:32] LABS: Procalcitonin* 0.06 ng/mL (<0.50)
[2022-03-18] MEDS: predniSONE 20 MG TABLET 40 MG PO (08:05)
[2022-03-18] MEDS: POTASSIUM CHLORIDE 10 MEQ CAPSULE ER 20 MEQ PO ×2 (08:06→19:08)
[2022-03-18] MEDS: BUDESONIDE 0.5 MG/2ML NEB NEB ×2 (09:11→12:24)
[2022-03-18] MEDS: CITALOPRAM HYDROBROMIDE 20 MG TABLET 30 MG PO (09:12)
[2022-03-18] MEDS: FLUTICASONE PROPIONATE NASAL 2 SPRAY NOSTRIL-B (09:12)
[2022-03-18] MEDS: BUSPIRONE 10 MG TABLET PO ×3 (09:13→21:32)
[2022-03-18] MEDS: METOPROLOL TARTRATE 25 MG TABLET PO ×2 (09:14→21:30)
[2022-03-18] MEDS: FLECAINIDE ACETATE 50 MG TABLET 75 MG PO ×2 (09:14→21:29)
[2022-03-18] MEDS: TORSEMIDE 20 MG TABLET PO (09:14)
--- NOTE | 2022-03-18 09:48 | P.IMPN_ITS ---
Progress Note: A&P Assessment and plan (1) COPD exacerbation: Problem details: Patient no longer has prominent expiratory wheezing, hoarseness, w tachypnea. Less chest congestion now that she has had in the past. No longer requiring high-flow oxygen supplementation. Requiring only a 0.5 L of oxygen per minute via nasal cannula. RSV+ status. Known metastatic lung cancer, discussed with daughter Daniela at great length. Patient will now be DNR DNI and we will discuss intermediate prognosis based on how the next 1-2 days go. Poor long-term prognosis was outlined for her daughter during previous conversations. Status: Acute Assessment and Plan: Anticipate will be able to discontinue her prednisone burst therapy after her dose today. For now continue with her bronchodilators and other supportive efforts. (2) Respiratory syncytial virus (RSV) laryngotracheobronchitis: Problem details: Likely her RSV infection exacerbated underlying COPD. Status: Acute Assessment and Plan: Continue with supportive cares. (3) Acute hypoxemic respiratory failure: Status: Acute Assessment and Plan: Requiring less oxygen support at this time, only 1/2 L per minute via nasal cannula continuously. Our hope is that she may not require oxygen at time of discharge. Will continue to see if we can work toward that. (4) Lung cancer: Problem details: 2019 right upper lobe lobectomy and mediastinal lymph node dissection. Appears now to have worsening metastatic disease, with greater than 30 nodules in both lungs now, left more so than right, with largest nodule of 1.5 cm diameter. Status: Acute (5) Breath shortness: Problem details: Chronic due to underlying lung disease (lobectomy, cancer), current RSV, current CHF, deconditioning, anxiety Status: Acute (6) CHF (congestive heart failure): Problem details: BNP 1000 (no previous baseline), up to 1500 - downtrending now. getting daily weights and orthostatic blood pressures. oxygen, hiflow, continues. s/p lasix IV - getting transitioned to demedex this afternoon, will be morning dose starting tomorrow. echo not updated as of yet. Awaiting final report of echo. Cardiac MR WWO SEPTEMBER 2018 1. Small LV with significant basal anterior wall thickening, hyperdynamic wall motion with near cavity obliteration, and supra normal EF 80%. Normal T1 and ECV. No evidence for amyloidosis. 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 This anatomy can cause HFpEF. 2. Multiple small cysts of both kidneys. 3. DDDR pacemaker in right heart. 4. Two lung masses - Right upper lung-2 x 2 cm irregular mass. Left lower lung-1.2 cm mass. 5. Recommend dedicated scan of the chest, and work-up of these pulmonary masses. Status: Acute (7) Atrial fibrillation: Problem details: rate controlled; continue flecinide; holding Zestril. adding metoprol. continue OAC Status: Acute (8) Cognitive impairment: Problem details: Has been on donepezil for a long time. Appears to have significant cognitive dysfunction. Assess for safety in the home well living alone. MOCA 17, decreased from 3 years ago. Status: Acute (9) Hypertension: Problem details: Blood pressure is quite elevated currently. Start metoprolol and monitor Status: Acute (10) Anxiety: Problem details: Prominent symptom intermittently Status: Acute (11) GERD (gastroesophageal reflux disease): Problem details: Baseline PPI providing adequate relief Status: Acute (12) Pacemaker: Problem details: Due to sick sinus syndrome Status: Acute Plan 1. Reviewed impression with patient. 2. Will attempt to reach patient's daughter. 3. Continue to work toward possible discharge, preferably without oxygen supplementation if possible. Will continue to work with respiratory therapy in that regard. 4. The patient's daughter and son-in-law live with the patient off and on at this time. I called the daughter's phone number, spoke with the daughter, her , and the son, Jeremiah. We spoke for roughly 20 minutes. The current short-term plan of care is for the patient to transition to a SNF for a short period of time for transitional care services including ongoing efforts to support her through physical therapy and occupational therapy. Beyond that additional decisions will need to be made. 5. We also discussed how the patient meets eligibility criteria for hospice services at this time. Given the trajectory of her cancer status we would estimate that her life expectancy is 6 months or less if the disease process was allowed to proceed in natural fashion without additional interventions. Family will consider the possibility of hospice services as well over time. 6. Beyond the transitional care services that we hope she can receive at a correction facility, family will need to decide about either remaining in a correction facility for longer period of time versus going home with a lot more support 24 hours a day based on or seen today. 7. Patient is no longer able to drive an automobile. Given her cognitive deficiencies, her severe hearing impairment, her physical abilities including poor endurance, patient is not safe to operate a vehicle any longer. Certainly this may be revisited in the future should her condition improved. I expressed this to the patient and her family. 8. Answered the patient's and her family's questions to their satisfaction. 9. Continue to proceed as stated above. Time Spent With Patient Total time spent: 70 minutes Subjective Time Seen by Provider: 08:30 Date Seen: 03/18/22 Interval history: Hospital day 6. Patient is awake when I see her this morning. She is very hard of hearing. She uses her sound amplifier system and we were able to engage in a conversation a little more easily. Indicates she feels well. She slept well. No longer utilizing high-flow oxygen delivery system. Now on 0.5 liter/minute oxygen via nasal cannula. Denies dyspnea at rest, paroxysmal nocturnal dyspnea, or orthopnea. Still has loose sounding cough, at times productive of clear sputum. The severity and frequency of her coughing paroxysms has decreased substantially. No hemoptysis. Still has a hoarse voice. Clears her throat often while she visits with me. Denies chest heaviness, pressure, tightness, or pain. Denies syncope or near- syncope. Appetite slowly improving. Denies nausea or vomiting. Tolerating increased activities but with persistent tachypnea and hypoxemia with minimal exertion. Exam Narrative: Exam Narrative: Appears comfortable and in no apparent distress. Alert, oriented to self and place not so much to time or situation. She tells me she wants to go home. Articulate, cooperative, friendly. Mood and affect are congruent. Weight today is 93.5 kg, down from 93.756 kg yesterday. Very hard of hearing, does better with the use of her sound amplifier. Vision is grossly adequately. Neck is supple. Midline trachea. Normal thyroid. No JVD or hepatojugular reflux. Does have a full neck. Lungs with scattered rhonchi and expiratory wheezing today. No rales. Chest wall excursions are full with respiratory efforts. No CVA tenderness. Heart tones with regular rhythm, normal S1-S2, systolic murmur unchanged. PMI not laterally displaced. Abdomen obese with active bowel sounds, soft, nontender. Extremities without edema. No obvious focal peripheral motor neurologic deficits. Aside from decreased hearing chronically cranial nerves 3-12 are grossly normal. Skin is warm, dry, intact. Const: Vital Signs, click to edit/add: Vital Signs - 24 hr 03/17/22 10:47 03/17/22 10:00 03/17/22 11:00 Temperature 98.2 F Pulse Rate Pulse Rate [Pulse Oximeter] 74 62 Respiratory Rate 20 20 Blood Pressure [Le ft Radial Artery] 135/74 Blood Pressure [Ri ght Arm] Pulse Oximetry 92 Oxygen Delivery Me thod Room Air Oxygen Flow Rate 30 Fraction of Inspir ed Oxygen 21 03/17/22 15:00 03/17/22 15:00 03/17/22 15:00 Temperature Pulse Rate 69 Pulse Rate [Pulse Oximeter] 62 Respiratory Rate 20 Blood Pressure [Le ft Radial Artery] Blood Pressure [Ri ght Arm] Pulse Oximetry 92 Oxygen Delivery Me thod Room Air Oxygen Flow Rate Fraction of Inspir ed Oxygen 03/17/22 15:00 03/17/22 19:00 03/17/22 23:00 Temperature 98 F 96.7 F L Pulse Rate 82 Pulse Rate [Pulse Oximeter] 63 68 Respiratory Rate 20 20 Blood Pressure [Le ft Radial Artery] 142/72 H Blood Pressure [Ri ght Arm] 149/77 H Pulse Oximetry 92 92 Oxygen Delivery Me thod Room Air Room Air Oxygen Flow Rate Fraction of Inspir ed Oxygen 03/17/22 23:00 03/17/22 23:00 03/17/22 23:00 Temperature 97.2 F L Pulse Rate Pulse Rate [Pulse Oximeter] 68 64 Respiratory Rate 20 20 20 Blood Pressure [Le ft Radial Artery] Blood Pressure [Ri ght Arm] 130/56 L Pulse Oximetry 92 92 Oxygen Delivery Me thod Room Air Room Air Oxygen Flow Rate Fraction of Inspir ed Oxygen 03/18/22 03:00 03/18/22 03:00 Temperature 97.6 F Pulse Rate Pulse Rate [Pulse Oximeter] 62 Respiratory Rate 20 Blood Pressure [Le ft Radial Artery] Blood Pressure [Ri ght Arm] 150/64 H Pulse Oximetry 94 94 Oxygen Delivery Me thod Nasal Cannula Oxygen Flow Rate 0.5 Fraction of Inspir ed Oxygen Documenting provider has reviewed patient's vital signs: yes Labs Labs: Laboratory Results - last 24 hr 03/18/22 03/18/22 03/18/22 06:20 06:20 06:20 WBC 13.45 H RBC 4.10 Hgb 13.1 Hct 40.4 MCV 99 MCH 32 MCHC 32 Plt Count 287 INR 1.47 H VBG pH VBG pCO2 VBG pO2 VBG HCO3 Sodium 138 Potassium 4.4 Chloride 105 Carbon Dioxide 29 BUN 40 H Creatinine 0.7 Estimated Creat Clear 33.41 Estimated GFR 84 Glucose 100 Calcium 8.9 Phosphorus Magnesium 2.2 Total Bilirubin 0.5 AST 33 ALT 38 H Alkaline Phosphatase 52 Troponin I 0.01 C-Reactive Protein 1.3 H NT-Pro-B Natriuret Pep 484 H Total Protein 5.3 L Albumin 3.2 L Procalcitonin 0.06 03/18/22 03/18/22 06:20 06:20 WBC RBC Hgb Hct MCV MCH MCHC Plt Count INR VBG pH 7.432 H VBG pCO2 48 VBG pO2 50.4 H VBG HCO3 32 H Sodium 138 Potassium 4.4 Chloride 105 Carbon Dioxide 29 BUN 39 H Creatinine 0.7 Estimated Creat Clear 33.41 Estimated GFR 84 Glucose 100 Calcium 8.8 Phosphorus 3.0 Magnesium Total Bilirubin AST ALT Alkaline Phosphatase Troponin I C-Reactive Protein NT-Pro-B Natriuret Pep Total Protein Albumin 3.2 L Procalcitonin
[2022-03-18] MEDS: RIVAROXABAN 10 MG TABLET 20 MG PO (19:09)
[2022-03-18] MEDS: LORazepam 0.5 MG TABLET PO (21:31)
[2022-03-18] MEDS: DONEPEZIL 10 MG TABLET PO (21:31)
[2022-03-18] MEDS: SODIUM CHLORIDE 0.9 % (FLUSH) 10 ML SYRINGE IVF (21:32)
[2022-03-19] VITALS (7 sets, daily range): BP systolic 100–132; BP diastolic 48–56; PULSE 62–73; RESP 18–24; TEMP 36.4–38; O2SAT 92–93
[2022-03-19] MEDS: IPRAT-ALBUT 0.5-2.5 MG/3 ML NEB 1 NEB IH ×2 (05:04→11:45)
[2022-03-19] MEDS: ACETAMINOPHEN 325 MG TABLET 650 MG PO ×2 (05:21→11:44)
[2022-03-19 06:57] LABS: Hematocrit 41.3 % (33.0-51.0); Hemoglobin* 13.4 gm/dL (12.0-16.0); Mean Corpuscular HGB Conc 32 gm/dL (32-36); Mean Corpuscular Hemoglobin 32 pg (26-34); Mean Corpuscular Volume 98 fL (80-100); Platelet Count* 286 K/uL (140-440); Red Blood Count 4.22 m/uL (4.00-5.20)
[2022-03-19 06:58] LABS: HCO3 VBG 32 mmol/L (21-28); PCO2 VBG 46 mmHG (40-50); PO2 VBG 44.5 mmHG (25-47); pH VBG 7.451 (7.32-7.43)
[2022-03-19 07:00] LABS: Slide Review Reflex No
[2022-03-19 07:13] LABS: INR 1.74 (0.91-1.10); Prothrombin Time 21.3 Seconds
[2022-03-19 07:14] LABS: Albumin* 3.2 g/dL (3.3-5.0); Chloride* 102 mmol/L (96-114); Potassium* 4.4 mmol/L (3.6-5.1); Sodium* 135 mmol/L (135-149)
[2022-03-19 07:16] LABS: Creatinine* 0.6 mg/dL (0.5-1.5); Est. Creatinine Clearance* 58.94; Estimated Glomerular Filt Rate 87 ml/min
[2022-03-19 07:17] LABS: Alanine Aminotransferase* 35 U/L (4-35); Alkaline Phosphatase* 54 U/L (40-150); Aspartate Amino Transferase* 27 U/L (12-35); Blood Urea Nitrogen* 27 mg/dL (7-30); Carbon Dioxide* 31 mmol/L (20-32); Total Protein* 5.7 g/dL (6.0-8.3)
[2022-03-19 07:18] LABS: Calcium* 8.8 mg/dL (8.4-10.6); Glucose* 98 mg/dL (60-115); Magnesium* 1.9 mg/dL (1.5-2.6)
[2022-03-19 07:20] LABS: C Reactive Protein* 2.7 mg/dL (0.5-1.0)
[2022-03-19 07:28] LABS: NT Pro B Type NatriureticPept* 640 PG/mL (0-450)
[2022-03-19 07:34] LABS: Procalcitonin* 0.05 ng/mL (<0.50)
[2022-03-19 07:35] LABS: Troponin I* < 0.01 ng/mL (0.01-0.04)
--- NOTE | 2022-03-19 07:47 | PC.NURSE ---
END OF SHIFT NOTE: PT PLEASANT AND COOPERATIVE WITH CARES ON TELE READING NSR PACED. PT LS WITH WHEEZES AND CRACKLES THROUGHOUT ALL LOBES. THIS MORNING PT BECAME SOB, THOUGH SP02 REMAINED 92-95%. PT REQUESTED OXYGEN. PLACED ON O2 FOR ROUGHLY 5-10MINS. PT STATED I THINK I AM JUST SCARED. THERAPEUTIC COMMUNICATION FROM FLOOR HELPER HELPED EASE PT ANXIETY. PT RECEIVED SCHEDULED NEB THAT PT STATES HELPED SOME. AMBULATES WITHIN ROOM WITH WALKER AND SBA.
[2022-03-19] MEDS: BUDESONIDE 0.5 MG/2ML NEB NEB (08:23)
[2022-03-19] MEDS: POTASSIUM CHLORIDE 10 MEQ CAPSULE ER 20 MEQ PO (08:23)
[2022-03-19] MEDS: CITALOPRAM HYDROBROMIDE 20 MG TABLET 30 MG PO (08:25)
[2022-03-19] MEDS: BUSPIRONE 10 MG TABLET PO (08:25)
[2022-03-19] MEDS: FLUTICASONE PROPIONATE NASAL 2 SPRAY NOSTRIL-B (08:26)
[2022-03-19] MEDS: FLECAINIDE ACETATE 50 MG TABLET 75 MG PO (08:26)
[2022-03-19] MEDS: TORSEMIDE 20 MG TABLET PO (08:28)
[2022-03-19] MEDS: SODIUM CHLORIDE 0.9 % (FLUSH) 10 ML SYRINGE IVF (08:28)
--- NOTE | 2022-03-19 10:59 | PC.SOCIAL ---
Discharge planning- Pt was accepted to [facility] for today. [facility] would like her to admit as soon as possible. Provided information to pt's daughter, Daniela. Daniela will come in shortly and transport pt to [facility].
--- NOTE | 2022-03-19 11:00 | PC.SOCIAL ---
Completed preadmission screening for pt to admit to [facility] today. Confirmation #[id number]. Faxed preadmission screening to [facility].
--- NOTE | 2022-03-19 13:35 | PC.NURSE ---
PATIENT DISCHARGED TO [facility] 1330 VIA DTR, DTR PRESENT AND AWARE OF DISCHARGE VERY SUPPORTIVE, ANANTH NURSE TO NURSE REPORT VIA PHONE, ALL QUESTIONS ANSWERED, UP A1 WALKER AND BELT TOLERATING FAIRLY, PATIENT EXPRESSES HAVING SOME SOB WITH ACTIVITY, TELE SHOWING NSR/PACED RHYTHM PATIENT REMAINED ON RA THROUGHOUT SHIFT, COUGH WITH SPUTUM PRODUCTION, [place] ABLE TO COMMUNICATE NEEDS, USES POCKET TALKER AT TIMES, METOPROLOL HELD DUE TO LOW B/P SEE VITAL SIGNS, MD UPDATED NO CHANGES TO ORDERS NOTED, ALERT AND ORIENTED, INCONTINENT, IV REMOVED CATHETER INTACT, ALL BELONGINGS SENT WITH PATIENT
--- NOTE | 2022-03-21 14:39 | P.DS_ITS ---
DS: Providers Provider Time Seen by Provider: 08:00 Date Seen: 03/19/22 Date of admission: 03/14/22 00:33 Primary care physician: Leila Gonzalez DO Admitting Clinician: Favian Encarnacion MD Consults: 03/13/22 22:44 Consult to Physical Therapy [CONS] Routine Comment: Reason(s) for PT Consult:: Evaluate and Treat Any Restrictions?:: No Restrictions Consult to Respiratory Therapy [CONS] Routine Comment: Reason(s) for RT Consult:: Consult 03/13/22 22:47 Consult to Occupational Therapy [CONS] Routine Comment: Reason(s) for OT Consult:: Evaluate and Treat Any Restrictions?:: No Restrictions Comment: MOCA Attending Physician on discharge: Favian Encarnacion MD Date of Discharge: 03/19/22 DS: Diagnosis Discharge Diagnosis (1) Acute hypoxemic respiratory failure: Status: Acute (2) Respiratory syncytial virus (RSV) laryngotracheobronchitis: Status: Acute Problem details: Likely her RSV infection exacerbated underlying COPD. (3) COPD exacerbation: Status: Acute Problem details: Patient no longer has prominent expiratory wheezing, hoarseness, w tachypnea. Less chest congestion now that she has had in the past. No longer requiring high-flow oxygen supplementation. Requiring only a 0.5 L of oxygen per minute via nasal cannula. RSV+ status. Known metastatic lung cancer, discussed with daughter Daniela at great length. Patient will now be DNR DNI and we will discuss intermediate prognosis based on how the next 1-2 days go. Poor long-term prognosis was outlined for her daughter during previous conversations. (4) Lung cancer: Status: Acute Problem details: 2019 right upper lobe lobectomy and mediastinal lymph node dissection. Appears now to have worsening metastatic disease, with greater than 30 nodules in both lungs now, left more so than right, with largest nodule of 1.5 cm diameter. (5) CHF (congestive heart failure): Status: Acute Problem details: BNP 1000 (no previous baseline), up to 1500 - downtrending now. getting daily weights and orthostatic blood pressures. oxygen, hiflow, continues. s/p lasix IV - getting transitioned to demedex this afternoon, will be morning dose starting tomorrow. echo not updated as of yet. Awaiting final report of echo. Cardiac MR WWO SEPTEMBER 2018 1. Small LV with significant basal anterior wall thickening, hyperdynamic wall motion with near cavity obliteration, and supra normal EF 80%. Normal T1 and ECV. No evidence for amyloidosis. 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 This anatomy can cause HFpEF. 2. Multiple small cysts of both kidneys. 3. DDDR pacemaker in right heart. 4. Two lung masses - Right upper lung-2 x 2 cm irregular mass. Left lower lung-1.2 cm mass. 5. Recommend dedicated scan of the chest, and work-up of these pulmonary masses. (6) Atrial fibrillation: Status: Acute Problem details: rate controlled; continue flecinide; holding Zestril. adding metoprol. continue OAC (7) Fever: Status: Acute Problem details: Multifactorial: RSV, UTI, lung cancer tumor burden (8) Urinary tract infection: Status: Acute Problem details: Staph. epidermidis > 100,000 CFU/ml, sensitive to doxycycline (9) Breath shortness: Status: Acute Problem details: Chronic due to underlying lung disease (lobectomy, cancer), current RSV, current CHF, deconditioning, anxiety (10) Hypertension: Status: Acute Problem details: Blood pressure is quite elevated currently. Start metoprolol and monitor (11) Cognitive impairment: Status: Acute Problem details: Has been on donepezil for a long time. Appears to have significant cognitive dysfunction. Assess for safety in the home well living alone. MOCA 17, decreased from 3 years ago. (12) Anxiety: Status: Acute Problem details: Prominent symptom intermittently (13) Pacemaker: Status: Acute Problem details: Due to sick sinus syndrome (14) GERD (gastroesophageal reflux disease): Status: Acute Problem details: Baseline PPI providing adequate relief DS: Summary Hospital Course Hospital Course: Madelaine Chao is a 86 year old female admitted through the emergency department with respiratory distress.? Patient reports that she became ill with cough and dyspnea in cold symptoms about 5 days ago.? She had traveled to [place] and was exposed to other people with respiratory illnesses.? She thinks she may have had a low-grade fever as well.? She is accompanied by her daughter today who gives most of the history.? She does have a history of lung cancer with a right upper lobe lobectomy about 3 years ago.? She does not carry a diagnosis of COPD or asthma.? She is a nonsmoker but did live with parents who were heavy smokers when she was younger.? She does note some hoarseness in her voice.? She is able to swallow without difficulty.? She is having no chest pain.? No abdominal pain. CT scan of chest with PE protocol demonstrated the following: FINDINGS: Heart and vasculature: Contrast opacification of the pulmonary arterial tree is adequate. No sign of pulmonary embolism. Heart size is normal. Thoracic aorta and pulmonary artery are normal in caliber. Lungs and pleura: There are numerous bilateral pulmonary nodules, left lung greater than right. All together there are at least 30 nodules with the largest measuring up to 1.5 cm. No lobar infiltrates. No pleural effusions, pleural thickening, or pneumothorax. Lymph nodes/mediastinum: No mediastinal, hilar, or axillary adenopathy. Chest wall: No masses. Upper abdomen: No acute or significant findings. Bones: Unremarkable for age. IMPRESSION: 1. No pulmonary embolism or other acute abnormality. 2. Numerous scattered bilateral pulmonary nodules are worse in the left lung. These have significantly increased in size in number compared to the prior exam from 1 year ago consistent with worsening of metastatic disease. Patient was thus admitted to the hospital for hypoxemic respiratory failure. Treated for COPD exacerbation given her long exposure to tobacco in the past. She responded well to this. Did require high-flow oxygen support for a period of time. Eventually were able to decrease her oxygen support to low-flow oxygen system. Several discussions were held with the patient and her family about the nature of the patient's lung cancer, how it is significantly worse with widely metastatic multiple pulmonary nodules now. Patient family decided to change the paradigm of care to comfort measures only with DNR DNI resuscitation status. They declined any additional disease directed diagnostic or interventional efforts, particular in regard to the lung cancer. For now they wish to pursue transitional care services in a senior living facility. They will continue to consider the possibility of hospice services. They are unclear as to with a hope to do with regard to the patient's living setting, whether the patient will remain in a assisted setting or attempt to return to a home setting. They will make this decision over time based on the patient's progression while in the transitional care setting. I did make it very clear to the patient and family that patient can no longer drive a car. The patient has physical limitations, cognitive limitations combined make it such that she is no longer able to safely operate an automobile at this time. Time Spent with Patient Time attestation: Total time spent providing and/or coordinating discharge services: Exam Narrative: Exam Narrative: Patient is awake when I see her this morning.? She is very hard of hearing.? She uses her sound amplifier system and we were able to engage in a conversation a little more easily. Indicates she feels well.? She slept well.? No longer utilizing high-flow oxygen delivery system.? Now on 0.5 liter/minute oxygen via nasal cannula.? Denies dy spnea at rest, paroxysmal nocturnal dyspnea, or orthopnea.? Still has loose sounding cough, at times productive of clear sputum.? The severity and frequency of her coughing paroxysms has decreased substantially.? No hemoptysis.? Still has a hoarse voice.? Clears her throat often while she visits with me.? Denies chest heaviness, pressure, tightness, or pain.? Denies syncope or near- syncope.? Appetite slowly improving.? Denies nausea or vomiting.? Tolerating increased activities but with persistent tachypnea and hypoxemia with minimal exertion. Exam Narrative:?? Exam Narrative: Ap pears comfortable and in no apparent distress. Alert, oriented to self a nd place not so mu ch to time or situ ation.? She tells me she wants to go home. Articulate, cooperative, frie ndly.? Mood and af fect are congruent . Weight today is 93.5 kg, down from 93.756 kg yesterd ay. Very hard of h earing, does mary r with the use of her sound amplifie r.? Vision is latha sly adequately. Ne ck is supple.? Mid line trachea.? Nor mal thyroid.? No J VD or hepatojugula r reflux.? Does carpenter ve a full neck. Aicha ngs with scattered rhonchi and expir atory wheezing tod ay.? No rales.? Ch est wall excursion s are full with re spiratory efforts. ? No CVA tendernes s.? Heart tones wi th regular rhythm, normal S1-S2, sys tolic murmur uncha nged.? PMI not lat erally displaced.? Abdomen obese wit h active bowel omar nds, soft, nontend er. Extremities wi thout edema. No ob vious focal periph eral motor neurolo gic deficits.? Asi de from decreased hearing chronicall y cranial nerves 3 -12 are grossly no rmal. Skin is warm , dry, intact. Const: Documenting provider has reviewed patient's vital signs: yes Discharge Plan Discharge Disposition: Xfer SNF Discharge Location: [facility] Date of Admission: 03/14/22 00:33 Attending Provider on Discharge: Yobany Jacobs Primary Care Provider: Leila Gonzalez Condition: Stable Anticipated Discharge Date/Time: 03/19/22 12:00 Discharge Medications: New acetaminophen 325 mg Tablet 650 mg PO Q6H PRNQty: 60 0RF albuterol sulfate 2.5 mg /3 mL (0.083 %) Solution For Nebulization 2.5 mg NEB Q3H PRNQty: 75 0RF budesonide [Pulmicort] 0.5 mg/2 mL Suspension For Nebulization 0.5 mg NEB BID Qty: 60 0RF potassium chloride 10 mEq Capsule, Extended Release 20 meq PO BIDWM Qty: 60 1RF ipratropium-albuterol 0.5 mg-3 mg(2.5 mg base)/3 mL Solution For Nebulization 3 ml inhalation Q6H Qty: 90 0RF guaifenesin 100 mg/5 mL Liquid 100 - 200 mg PO Q4H PRN (Reason: Cough) Qty: 473 0RF metoprolol tartrate 25 mg Tablet 25 mg PO BID Qty: 60 0RF doxycycline hyclate 100 mg tablet 100 mg PO BID Qty: 14 0RF Continued buspirone 10 mg tablet 10 mg PO TID flecainide 150 mg tablet 75 mg PO Q12H Label Comments: TAKE HALF TABLET BY MOUTH EVERY TWELVE HOURS furosemide 20 mg tablet 20 mg PO DAILY Label Comments: TAKE ONE TABLET BY MOUTH ONE TIME DAILY lorazepam 0.5 mg tablet 0.5 mg PO HS PRN Xarelto 20 mg tablet 20 mg PO Q24H Label Comments: TAKE ONE TABLET BY MOUTH ONE TIME DAILY IN THE EVENING WITH FOOD donepezil 10 mg tablet 10 mg PO HS citalopram 20 mg tablet 30 mg PO DAILY Label Comments: Take 1.5 Tablets (30 mg) by mouth once daily lisinopril 2.5 mg tablet 2.5 mg PO DAILY Label Comments: TAKE ONE TABLET (2.5MG) BY MOUTH ONE TIME DAILY fluticasone propionate 50 mcg/actuation spray,suspension 2 spray INTRANASAL DAILY nystatin 100,000 unit/gram cream 1 applic TOPICAL BID PRN multivitamin Tablet 1 tab PO DAILY Discharge Orders: Discharge Order (Routine); Ordered 03/19/22 Ordered By: Yobany Jacobs Activity Level: No Restrictions Discharge Diet: Regular Dysphagia Food: Level 7- Regular Dysphagia Liquid: Level 0-Thin Follow Up Appointments: [facility] [Outside] Leila Gonzalez DO [Primary Care Provider] - Admit to: SNF Discharge Potential: Poor Length of Stay: >90 days Can use facility standing orders?: Yes Code Status: DNR/DNI TEDs: Bilateral Knee Rehab Potential: Fair Therapy: Physical Therapy and Occupational Therapy Therapy Orders: Evaluate and Treat Oxygen: Yes Oxygen Delivery Method: Nasal Cannula Oxygen Flow Rate: 0-2 for SaO2 >88% Urinary Catheter: No Hospice Evaluate and Admit: yes Orders are good >30 days: Yes Signature: Yobany Jacobs
== END 2022-03-19 13:30 | DRG 190 ==
LOC: ED 21:31 → MEDSURG 03-14 00:36
PROVIDERS: Family Medicine; Internal Medicine; Admitting Provider Family Medicine; Emergency Provider Internal Medicine; PCP Family Medicine; Visit Provider Family Medicine
DX: J44.0 Chronic obstructive pulmonary disease with (acute) lower respiratory infection (principal); J96.01 Acute respiratory failure with hypoxia; Q61.02 Congenital multiple renal cysts; I50.20 Unspecified systolic (congestive) heart failure; C78.01 Secondary malignant neoplasm of right lung; C78.02 Secondary malignant neoplasm of left lung; N39.0 Urinary tract infection, site not specified; Z16.29 Resistance to other single specified antibiotic; Z16.11 Resistance to penicillins; J20.5 Acute bronchitis due to respiratory syncytial virus; J44.1 Chronic obstructive pulmonary disease with (acute) exacerbation; I11.0 Hypertensive heart disease with heart failure; Z90.2 Acquired absence of lung [part of]; F41.9 Anxiety disorder, unspecified; Z85.118 Personal history of other malignant neoplasm of bronchus and lung; I48.91 Unspecified atrial fibrillation; G31.84 Mild cognitive impairment of uncertain or unknown etiology; E66.9 Obesity, unspecified; I49.5 Sick sinus syndrome; Z95.0 Presence of cardiac pacemaker; K21.9 Gastro-esophageal reflux disease without esophagitis; B95.7 Other staphylococcus as the cause of diseases classified elsewhere; B96.89 Other specified bacterial agents as the cause of diseases classified elsewhere
CPT/HCPCS: 36415; 36600; 71045; 71260; 80053; 80069; 81001; 82803; 83605; 83735; 83880; 84145; 84484; 85025; 85027; 85610; 86140; 87040; 87086; 87186; 87502; 87634; 87635; 93005; 93306; 94640; 94664; 94761; 97110; 97116; 97162; 97166; 97530; 97535; 99283; 99284; 99285; A9270; J1940; J2543; J2920; J2930; J7512; J7626; Q9967

== ENCOUNTER 2022-04-20 08:28 | Outpatient (CLI) | payer MEDICARE, BC, SELFPAY | END 2022-04-20 08:29 | disposition home or self-care (01) | LOC: AMB 04-23 11:52 | PROVIDERS: PCP Family Medicine; Visit Provider Family Medicine | DX: R06.09 Other forms of dyspnea (principal) | CPT/HCPCS: A0425; A0427 ==

== ENCOUNTER 2022-04-20 09:08 | Emergency (ER) | payer MEDICARE, BC, SELFPAY ==
[2022-04-20] VITALS (17 sets, daily range): BP systolic 141–166; BP diastolic 67–134; PULSE 60–68; RESP 33; TEMP 37.2; O2SAT 86–95; BMI 36.6
--- NOTE | 2022-04-20 09:20 | ED.NURSE ---
Dr Ellison called to bedside after patient arrived to assess respiratory status.
--- NOTE | 2022-04-20 09:22 | CRLHL7_ITS ---
For Patients: As a result of the Century Cures Act, medical imaging exams and procedure reports are released immediately into your electronic medical record. You may view this report before your referring provider. If you have questions, please contact your health care provider. INDICATION: short of breath, NSCL ca, rt lung lobectomy TECHNIQUE: Chest 1 view COMPARISON: 03/15/2022 FINDINGS: Previously noted nodular masses/densities within the left lung have decreased in conspicuity. Increased ill-defined densities noted within the left lung base. Increased tenting of the right hemidiaphragm. Postop changes again noted. No pneumothorax. Cardiomegaly. IMPRESSION: An acute infiltrate is suspected within the left lung base. Dictated by Haile Cabrera MD @ 04/20/2022 10:12:07 AM (Electronically Signed)
--- NOTE | 2022-04-20 09:23 | ED_ITS ---
HPI - General Adult General Chief complaint: Shortness of Breath/Dyspnea Stated complaint: Difficulty breathing Time Seen by Provider: 04/20/22 09:21 History of Present Illness HPI narrative: This 86-year-old comes in by ambulance because of shortness of breath. She has history of lung cancer and has had her right lung removed. She is in hospice care. She is not normally on oxygen at home. She she became short of breath sometime in the night and and was found to have oximetry at 82% on room air when ambulance arrived. She received nasal cannula oxygen which brought her oximetry quickly up into normal range. She did received nebulizer treatment without much benefit. Upon arrival she has oximetry at around 97% on 4 L nasal cannula. She is using accessory muscles for breathing. She can talk in almost complete sentences. Related Data Home Medications Medication Instructions Recorded Confirmed buspirone 10 mg tablet 10 mg PO TID 03/13/22 03/13/22 citalopram 20 mg tablet 30 mg PO DAILY 03/13/22 03/13/22 donepezil 10 mg tablet 10 mg PO HS 03/13/22 03/14/22 flecainide 150 mg tablet 75 mg PO Q12H 03/13/22 03/14/22 furosemide 20 mg tablet 20 mg PO DAILY 03/13/22 03/13/22 lisinopril 2.5 mg tablet 2.5 mg PO DAILY 03/13/22 03/13/22 lorazepam 0.5 mg tablet 0.5 mg PO HS PRN 03/13/22 03/14/22 rivaroxaban 20 mg tablet (Xarelto) 20 mg PO Q24H 03/13/22 03/13/22 fluticasone propionate 50 2 spray intranasal DAILY 03/14/22 03/14/22 mcg/actuation nasal spray,suspension multivitamin 1 tab PO DAILY 03/14/22 03/14/22 nystatin 100,000 unit/gram topical 1 applic topical BID PRN 03/14/22 03/14/22 cream Previous Rx's Medication Instructions Recorded acetaminophen 325 mg tablet 650 mg PO Q6H PRN #60 tabs 03/19/22 albuterol sulfate 2.5 mg/3 mL 2.5 mg (3 mL) NEB Q3H PRN #75 mL 03/19/22 (0.083 %) solution for nebulization budesonide 0.5 mg/2 mL suspension 0.5 mg (2 mL) NEB BID #60 mL 03/19/22 for nebulization (Pulmicort) doxycycline hyclate 100 mg tablet 100 mg PO BID #14 tabs 03/19/22 guaifenesin 100 mg/5 mL oral liquid 100 - 200 mg (5 - 10 mL) PO Q4H 03/19/22 PRN Cough #473 mL ipratropium 0.5 mg-albuterol 3 mg 3 ml inhalation Q6H #90 mL 03/19/22 (2.5 mg base)/3 mL nebulization soln metoprolol tartrate 25 mg tablet 25 mg PO BID #60 tabs 03/19/22 potassium chloride 10 mEq 20 meq PO BIDWM #60 caps 03/19/22 capsule,extended release levofloxacin 500 mg tablet 500 mg PO DAILY 10 days #10 tabs 04/20/22 Allergies Allergy/AdvReac Type Severity Reaction Status Date / Time lactose Allergy Intermediate GI upset Verified 03/13/22 18:09 nitrofurantoin Allergy Unknown Verified 03/13/22 18:09 diphenhydramine AdvReac Unknown Verified 03/13/22 18:09 melatonin AdvReac Unknown Verified 03/13/22 18:09 Review of Systems Status of ROS: Reports: 10 or more systems reviewed and unremarkable except as noted in History and below Narrative: Constitutional: No fevers, no weight gain or loss. Eyes: No discharge. No vision changes. HENT: No congestion, no sore throat, no ear pain. Cardiovascular: No chest pain, no palpitations. Respiratory: Shortness of breath. Gastrointestinal: No abdominal pain, no vomiting, no diarrhea. Genitourinary: No dysuria, no hematuria. Musculoskeletal: Normal range of motion. Skin: No rashes, no pruritis. Neurological: No dizziness, weakness, sensory change, speech change. Endo/Heme/Allergies: No bruising or bleeding. No polydipsia. Pysch: no suicidality, no anxiety, no insomnia. All other systems reviewed and are negative. [facility] Medical History (Updated 04/20/22 @ 13:37 by Karan Ellison MD) Anxiety Atrial fibrillation CHF (congestive heart failure) Cognitive impairment COPD exacerbation Diverticulosis GERD (gastroesophageal reflux disease) Hypertension Lung cancer Pacemaker Renal cyst Sick sinus syndrome Surgical History (Updated 03/13/22 @ 23:02 by Favian Encarnacion MD) H/O bilateral oophorectomy History of appendectomy History of colonoscopy History of esophagogastroduodenoscopy (EGD) History of lobectomy of lung History of vein stripping Family History (Updated 03/13/22 @ 23:51 by Faivan Encarnacion MD) Father Coronary artery disease High blood pressure Social History (Updated 03/13/22 @ 23:53 by Favian Encarnacion MD) Narrative: Patient lives alone in her own home. Her daughter lives with her somewhat seasonally. The daughter, Daniela, has a cabin near [place] where they spend much of the summer and ache occasionally come to live in [place] during the summer and then mostly during the winter. Madelaine manages mostly on her own. She does get Meals on wheels. She does drive. Daughter Daniela is healthcare power of insurance attorney. Code status is full. 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 She is a nonsmoker but lives with her parents were heavy smokers. She rarely drinks alcohol. Smoking Status: Never smoker Second hand tobacco smoke exposure: No How often do you have a drink containing alcohol: never AUDIT-C Alcohol total score: 0 Non-prescribed substance use: denies use Caffeine: Yes (Occasional) service: No Exam Narrative: Exam Narrative: Constitutional: Well-developed, well-nourished, no acute distress. HEENT: Normocephalic, atraumatic. Neck: Normal range of motion. Nontender. Supple. Heart: Regular. No murmurs. Normal rate. Intact distal pulses. Lungs: Absent lung sounds on the right due to right lung resection. Use of accessory muscles for breathing. Abdomen: Normal bowel sounds. Nontender. No rebound tenderness. Genitalia: Deferred. Back: No midline tenderness. Normal range of motion. Extremities: Normal range of motion. No injury. Skin: Intact. No rash. Warm. No erythema or pallor. Neurologic: No altered sensation. No weakness. Alert and oriented. Psychiatric: No suicidality. No anxiety or depression. No insomnia. Nursing notes and vitals signs are reviewed. Const: Vital Signs, click to edit/add: Vital Signs - 24 hr 04/20/22 09:22 04/20/22 09:22 04/20/22 10:33 Temperature 99.0 F Pulse Rate Pulse Rate [Left P ulse Oximeter] 68 Respiratory Rate 33 H Blood Pressure Blood Pressure [Le ft Upper Arm] 146/134 H Pulse Oximetry 92 95 Oxygen Delivery Me thod Room Air Nasal Can nula Oxygen Flow Rate 4 Fraction of Inspir ed Oxygen 0.30 04/20/22 10:13 04/20/22 10:30 04/20/22 10:31 Temperature Pulse Rate 60 61 60 Pulse Rate [Left P ulse Oximeter] Respiratory Rate Blood Pressure 141/75 H Blood Pressure [Le ft Upper Arm] Pulse Oximetry 94 92 89 Oxygen Delivery Me thod BiPAP BiPAP Oxygen Flow Rate Fraction of Inspir ed Oxygen 30 30 04/20/22 11:00 04/20/22 11:01 04/20/22 11:30 Temperature Pulse Rate 60 60 60 Pulse Rate [Left P ulse Oximeter] Respiratory Rate Blood Pressure 146/74 H Blood Pressure [Le ft Upper Arm] Pulse Oximetry 90 88 93 Oxygen Delivery Me thod BiPAP Oxygen Flow Rate Fraction of Inspir ed Oxygen 30 04/20/22 11:32 Temperature Pulse Rate 60 Pulse Rate [Left P ulse Oximeter] Respiratory Rate Blood Pressure 152/84 H Blood Pressure [Le ft Upper Arm] Pulse Oximetry 90 Oxygen Delivery Me thod Oxygen Flow Rate Fraction of Inspir ed Oxygen Course Vital Signs Vital signs: Initial Vital Signs Temperature 99.0 F 04/20/22 09:22 Temperature Source Temporal Artery Scan 04/20/22 09:22 Pulse Rate 68 04/20/22 09:22 Pulse Rhythm 04/20/22 09:22 Pulse Strength 3+ Normal 04/20/22 09:22 Respiratory Rate 33 H 04/20/22 09:22 Blood Pressure 146/134 H 04/20/22 09:22 Blood Pressure Mean 138 04/20/22 09:22 Blood Pressure Position Sitting 04/20/22 09:22 Pulse Oximetry 92 04/20/22 09:22 Oxygen Delivery Method Nasal Cannula 04/20/22 09:22 Oxygen Flow Rate 4 04/20/22 09:22 Vital Signs Temperature 99.0 F 04/20/22 09:22 Pulse Rate 68 04/20/22 09:22 Respiratory Rate 33 H 04/20/22 09:22 Blood Pressure 146/134 H 04/20/22 09:22 Pulse Oximetry 92 04/20/22 09:22 Oxygen Delivery Method Nasal Cannula 04/20/22 09:22 Oxygen Flow Rate 4 04/20/22 09:22 Temperature 99.0 F 04/20/22 09:22 Pulse Rate 60 04/20/22 11:32 Respiratory Rate 33 H 04/20/22 09:22 Blood Pressure 152/84 H 04/20/22 11:32 Pulse Oximetry 90 04/20/22 11:32 Oxygen Delivery Method 04/20/22 11:01 Oxygen Flow Rate 4 04/20/22 09:22 Fraction of Inspired Oxygen 30 04/20/22 11:01 Medical Decision Making MDM Narrative Medical decision making narrative: This patient arrives by ambulance because of shortness of breath. She is currently in hospice care but this was suspended for her to come here. She is DNR DNI. She was noted to have oximetry at 82% on room air when ambulance arrived. She states that she became short of breath during the night. She responded nicely to oxygen nasal cannula at 4 L. She was using accessory muscles for breathing and did then benefit from BiPAP throughout most of her stay here. The oxygen supplementation in BiPAP was decreased throughout her stay eventually to room air where she maintained sufficient oximetry at 92-93%. When BiPAP was removed her oximetry decreased a bit to around 90%. She may need oxygen but is okay to return to hospice care at home where the these matters can be attended to according to hospice plans. Chest x-ray does show the suspicion of a early pneumonia in the left lung base. The patient did receive an IV dose of Levaquin and Solu-Medrol. A prescription for Levaquin is provided. She is okay to return home to resume hospice care. Lab Data Labs: Lab Results 04/20/22 04/20/22 04/20/22 Range/Units 09:22 09:36 09:36 WBC 13.26 H (4.50-11.00) K/uL RBC 3.95 L (4.00-5.20) m/uL Hgb 12.3 (12.0-16.0) gm/dL Hct 38.5 (33.0-51.0) % MCV 98 (80-100) fL MCH 31 (26-34) pg MCHC 32 (32-36) gm/dL RDW Coeff of Jose Maria 12.4 (11.5-15.5) % Plt Count 279 (140-440) K/uL Neut % (Auto) 74.9 H (42.0-72.0) % Lymph % (Auto) 12.1 L (20-44) % [place] % (Auto) 10.2 (0.0-11.0) % Eos % (Auto) 2.2 (0.0-7.0) % Baso % (Auto) 0.3 (0.0-3.0) % Neut # (Auto) 9.90 H (1.7-7.0) K/uL Lymph # (Auto) 1.60 (0.90-2.90) K/uL [place] # (Auto) 1.40 H (0.00-0.90) K/UL Eos # (Auto) 0.30 (0.00-0.50) K/uL Baso # (Auto) 0.00 (0.00-0.30) K/uL VBG pH 7.432 H (7.32-7.43) VBG pCO2 36 L (40-50) mmHG VBG pO2 85.6 H (25-47) mmHG VBG HCO3 24 (21-28) mmol/L Sodium (135-149) mmol/L Potassium (3.6-5.1) mmol/L Chloride (96-114) mmol/L Carbon Dioxide (20-32) mmol/L BUN (7-30) mg/dL Creatinine (0.5-1.5) mg/dL Estimated Creat Clear Estimated GFR ml/min Glucose (60-115) mg/dL Calcium (8.4-10.6) mg/dL SARS-CoV-2 (PCR) Negative SARS-CoV-2 (Negative) Influenza Type A (PCR) Negative PCR FLU A (Negative) Influenza Type B (PCR) Negative PCR FLU B (Negative) RSV (PCR) Negative PCR RSV (Negative) 04/20/22 Range/Units 09:36 WBC (4.50-11.00) K/uL RBC (4.00-5.20) m/uL Hgb (12.0-16.0) gm/dL Hct (33.0-51.0) % MCV (80-100) fL MCH (26-34) pg MCHC (32-36) gm/dL RDW Coeff of Jose Maria (11.5-15.5) % Plt Count (140-440) K/uL Neut % (Auto) (42.0-72.0) % Lymph % (Auto) (20-44) % [place] % (Auto) (0.0-11.0) % Eos % (Auto) (0.0-7.0) % Baso % (Auto) (0.0-3.0) % Neut # (Auto) (1.7-7.0) K/uL Lymph # (Auto) (0.90-2.90) K/uL [place] # (Auto) (0.00-0.90) K/UL Eos # (Auto) (0.00-0.50) K/uL Baso # (Auto) (0.00-0.30) K/uL VBG pH (7.32-7.43) VBG pCO2 (40-50) mmHG VBG pO2 (25-47) mmHG VBG HCO3 (21-28) mmol/L Sodium 134 L (135-149) mmol/L Potassium 5.3 H (3.6-5.1) mmol/L Chloride 106 (96-114) mmol/L Carbon Dioxide 21 (20-32) mmol/L BUN 38 H (7-30) mg/dL Creatinine 0.9 (0.5-1.5) mg/dL Estimated Creat Clear 31.94 Estimated GFR 62 ml/min Glucose 144 H (60-115) mg/dL Calcium 9.7 (8.4-10.6) mg/dL SARS-CoV-2 (PCR) (Negative) Influenza Type A (PCR) (Negative) Influenza Type B (PCR) (Negative) RSV (PCR) (Negative) Imaging Data Chest x-ray: Radiologist's impression: FINDINGS: Previously noted nodular masses/densities within the left lung have decreased in conspicuity. Increased ill-defined densities noted within the left lung base. Increased tenting of the right hemidiaphragm. Postop changes again noted. No pneumothorax. Cardiomegaly. IMPRESSION: An acute infiltrate is suspected within the left lung base. ECG Data Attestation: I personally reviewed and interpreted this ECG as follows: Interpretation: Normal sinus rhythm. Occasional atrial paced complexes. Rate is 62 beats per minute. There are no ST or T-wave abnormalities. Discharge Plan Discharge Clinical Impression: Community acquired pneumonia, Lung cancer Patient Disposition: Home w/ Parent or Adult Condition: Stable Additional Instructions: Take medication as prescribed. Return to hospice care. Follow up with MD otherwise as needed. Prescriptions: New levofloxacin 500 mg tablet 500 mg PO DAILY 10 Days Qty: 10 0RF No Action buspirone 10 mg tablet 10 mg PO TID flecainide 150 mg tablet 75 mg PO Q12H Label Comments: TAKE HALF TABLET BY MOUTH EVERY TWELVE HOURS furosemide 20 mg tablet 20 mg PO DAILY Label Comments: TAKE ONE TABLET BY MOUTH ONE TIME DAILY lorazepam 0.5 mg tablet 0.5 mg PO HS PRN Xarelto 20 mg tablet 20 mg PO Q24H Label Comments: TAKE ONE TABLET BY MOUTH ONE TIME DAILY IN THE EVENING WITH FOOD donepezil 10 mg tablet 10 mg PO HS citalopram 20 mg tablet 30 mg PO DAILY Label Comments: Take 1.5 Tablets (30 mg) by mouth once daily lisinopril 2.5 mg tablet 2.5 mg PO DAILY Label Comments: TAKE ONE TABLET (2.5MG) BY MOUTH ONE TIME DAILY fluticasone propionate 50 mcg/actuation spray,suspension 2 spray INTRANASAL DAILY nystatin 100,000 unit/gram cream 1 applic TOPICAL BID PRN multivitamin Tablet 1 tab PO DAILY acetaminophen 325 mg Tablet 650 mg PO Q6H PRNQty: 60 0RF albuterol sulfate 2.5 mg /3 mL (0.083 %) Solution For Nebulization 2.5 mg NEB Q3H PRNQty: 75 0RF budesonide [Pulmicort] 0.5 mg/2 mL Suspension For Nebulization 0.5 mg NEB BID Qty: 60 0RF potassium chloride 10 mEq Capsule, Extended Release 20 meq PO BIDWM Qty: 60 1RF ipratropium-albuterol 0.5 mg-3 mg(2.5 mg base)/3 mL Solution For Nebulization 3 ml inhalation Q6H Qty: 90 0RF guaifenesin 100 mg/5 mL Liquid 100 - 200 mg PO Q4H PRN (Reason: Cough) Qty: 473 0RF metoprolol tartrate 25 mg Tablet 25 mg PO BID Qty: 60 0RF doxycycline hyclate 100 mg tablet 100 mg PO BID Qty: 14 0RF Follow Up/Referrals: Leila Gonzalez DO [Primary Care Provider] - Stand Alone Forms: MyHealth Info Instructions
--- NOTE | 2022-04-20 09:30 | ED.NURSE ---
Respiratory therapy at bedside. Starting patient on Bipap.
[2022-04-20 09:44] LABS: HCO3 VBG 24 mmol/L (21-28); PCO2 VBG 36 mmHG (40-50); PO2 VBG 85.6 mmHG (25-47); pH VBG 7.432 (7.32-7.43)
[2022-04-20 09:56] LABS: Basophils Percent Auto 0.3 % (0.0-3.0); Eosinophils Percent Auto 2.2 % (0.0-7.0); Hematocrit 38.5 % (33.0-51.0); Hemoglobin* 12.3 gm/dL (12.0-16.0); Immature Granulocytes Pct Auto 0.3 %; Lymphocytes Percent Auto 12.1 % (20-44); Mean Corpuscular HGB Conc 32 gm/dL (32-36); Mean Corpuscular Hemoglobin 31 pg (26-34); Mean Corpuscular Volume 98 fL (80-100); Monocytes Percent Auto 10.2 % (0.0-11.0); Neutrophils Percent Auto 74.9 % (42.0-72.0); Platelet Count* 279 K/uL (140-440); RDW Coefficient of Variation % 12.4 % (11.5-15.5); Red Blood Count 3.95 m/uL (4.00-5.20); White Blood Count* 13.26 K/uL (4.50-11.00)
[2022-04-20 09:59] LABS: Slide Review Reflex No
[2022-04-20 10:04] LABS: Chloride* 106 mmol/L (96-114)
[2022-04-20 10:05] LABS: Potassium* 5.3 mmol/L (3.6-5.1); Sodium* 134 mmol/L (135-149)
[2022-04-20 10:07] LABS: Creatinine* 0.9 mg/dL (0.5-1.5); Est. Creatinine Clearance* 31.94; Estimated Glomerular Filt Rate 62 ml/min
[2022-04-20 10:07] LABS: PCR FLU A Negative PCR FLU A (Negative); PCR FLU B Negative PCR FLU B (Negative); PCR RSV Negative PCR RSV (Negative)
[2022-04-20 10:08] LABS: Blood Urea Nitrogen* 38 mg/dL (7-30); Calcium* 9.7 mg/dL (8.4-10.6); Carbon Dioxide* 21 mmol/L (20-32); Glucose* 144 mg/dL (60-115)
[2022-04-20 10:15] LABS: SARS PCR* Negative SARS-CoV-2 (Negative)
[2022-04-20] MEDS: METHYLPREDNISOLONE SOD SUCC 62.5 MG/ML (125) 125 MG IVP (11:45)
== END 2022-04-20 14:24 | disposition home or self-care (01) ==
PROVIDERS: Emergency Provider Emergency Medicine Emergency Medical Services; PCP Family Medicine
DX: J18.9 Pneumonia, unspecified organism (principal); C34.90 Malignant neoplasm of unspecified part of unspecified bronchus or lung
CPT/HCPCS: 36415; 71045; 80048; 82803; 85025; 87502; 87634; 87635; 93005; 94660; 94761; 96365; 96366; 99285; J1956; J2930